=== PATIENT | female | born 2005 | race Caucasian/White ===

== ENCOUNTER 2024-10-15 14:24 | Emergency (ER) | payer OTHER, SELFPAY ==
[2024-10-15 14:38] VITALS: BP 129/86; PULSE 99; RESP 20; TEMP 36.4; O2SAT 100
[2024-10-15] MEDS: ONDANSETRON HCL ODT 4 MG TABLET SUBLINGUAL (14:42)
[2024-10-15 14:55] LABS: EDCOVIDSCREEN Negative (Negative); EDINFLUASCREEN Negative (Negative); EDINFLUBSCREEN Negative (Negative)
--- NOTE | 2024-10-15 14:59 | ED_ITS ---
HPI - Nausea/Vomiting/Diarrhea General Chief complaint: Nausea/Vomiting/Diarrhea Stated complaint: Vomiting Time Seen by Provider: 10/15/24 14:50 Source: patient Mode of arrival: ambulatory Limitations: no limitations History of Present Illness HPI Narrative: 19 year old female wo presents to [facility] care with roommate with complaints of nausea vomiting and diarrhea starting at 0700. Patient reports that she feels chilled and has some pain above her umbilicus denies any known fever, has headache and also body aches.s. Patient reports that she has not been able to keep any fluids down and she has had several watery diarrhea stools. Patient reports no blood or bilious vomiting has been food content initially now just watery and dry heaves. Patient reports no blood noted in stools which are watery loose stools. MD elicited complaint: nausea, vomiting, diarrhea and other (pain at area above umbilicus) Onset (ago): hour(s) (since 0700) Description of vomiting: food contents and watery Description of diarrhea: watery Associated nausea: Yes Associated abdominal pain: Yes Location of pain: other (above unbilicus) Severity: moderate Treatment prior to arrival: other (anti nausea med at home) Related Data Home Medications ?Medication ?Instructions ?Recorded ?Confirmed ?Last Taken ?Type methylphenidate HCl 20 mg 20 mg PO QPM 10/15/24 10/15/24 Unknown History tablet,extended release Allergies Allergy/AdvReac Type Severity Reaction Status Date / Time No Known Allergies Allergy Verified 10/15/24 14:33 Review of Systems Review of Systems: CONSTITUTIONAL: Denies fever, chills, or sweats. EYES: Denies visual changes, redness, or discharge. ENT: Denies rhinorrhea, congestion, sore throat, or otalgia. CARDIOVASCULAR: Denies chest pain, palpitations, or edema. RESPIRATORY: Denies cough or dyspnea. GASTROINTESTINAL: positive for abdominal pain above umbilicus, with nausea, vomiting, or diarrhea. GENITOURINARY: Denies dysuria or hematuria. SKIN: Denies rash or itching. MUSCULOSKELETAL: Denies back pain, joint pain, positive body aches NEUROLOGIC: Reports headache, numbness, or weakness. PSYCHIATRIC: Denies anxiety or depression. All systems reviewed & are unremarkable except as noted in HPI and below PMFSH Past Medical History Medical History (Updated 10/16/24 @ 13:25 by Cristela Garces NP) Hypertension ADHD (attention deficit hyperactivity disorder) Social History Social History (Updated 10/16/24 @ 13:25 by Cristela Garces NP) Smoking status: Current every day smoker Tobacco type: e-cigarettes/vaping Alcohol intake: current Alcohol use details: social Substance use type: does not use Living arrangements: with roommate(s) Occupation/Education: student Gender identity (if verbalized by the patient): Female Comments At time of signature, agree with nursing past medical, surgical, social and family history. There is no relevant family history pertinent to the presenting complaint Exam Narrative: GENERAL: Ill appearing, well-nourished, and in no some acute distress. HEAD: Normocephalic, atraumatic. EYES: PERRLA and EOMI. ENT: Nares clear, no rhinorrhea or epistaxis. Mucous membranes moist. NECK: Supple.no lymphadenopathy CHEST: Clear to auscultation. No respiratory distress. no cough noted SAO2 100% on room air HEART: Regular rate and rhythm. No murmur heard. Normal peripheral pulses. ABDOMEN: Soft,tender to mid abdomen region, No McBurney point tenderness, nondistended, normal active bowel sounds. nausea vomiting and diarrhea EXTREMITIES: Normal range of motion. No edema. SKIN: Warm, dry, no rash. NEURO: No focal deficits. Alert and oriented x3. Course Course Emergency Course: Patient is aware of diagnosis, understands and agrees to treatment plan.? Anti cipatory guidance given.? Patient agrees to follow-up as directed to seek care at the emergency department. Portions of this record may have been created with voice recognition software Level of Care: Express Care Visit Vital Signs Vital signs: Vital Signs Temperature 36.4 C L 10/15/24 14:38 Pulse Rate 99 10/15/24 14:38 Respiratory Rate 20 10/15/24 14:38 Blood Pressure 129/86 10/15/24 14:38 Pulse Oximetry 100 10/15/24 14:38 Temperature 36.4 C L 10/15/24 14:38 Pulse Rate 99 10/15/24 14:38 Respiratory Rate 20 10/15/24 14:38 Blood Pressure 129/86 10/15/24 14:38 Pulse Oximetry 100 10/15/24 14:38 Reviewed Transfer Transfered to: [facility] Transportation: Other (per private car with roommate) Transfer rationale: Nausea vomiting and diarrhea without response to Zofran doses X2,unable to keep any fluids down has had consistent N,V,D since 0700, dehydration. Accepting physician: Davon Transfer comments: Transfer to ED at [facility] per private car with room-mate MDM - Nausea/Vomiting/Diarrhea MDM Narrative Medical decision making narrative: [address] Mays at [facility] with condition update, testing results and PMH and VS reviewed, he agreed to accept patient for transfer. Differential Diagnosis Differential diagnosis: Likely gastroenteritis, dehydration and other (acute nausea and vomiting, diarrhea. ) Medical Records Attestation: I reviewed the patient's medical records. Lab Data Attestation: I reviewed the patient's lab results. Lab results narrative: Influenza A negative, Influenza B negative, COVID antigen negative Labs: Lab Results 10/15/24 Range/Units 14:53 POC Influenza A Ag Negative (Negative) POC Influenza B Ag Negative (Negative) POC SARS CoV-2 Ag Negative (Negative) reviewed Critical Care Time Critical Care Time Critical Care Time: No Discharge Plan Discharge Clinical Impression: Gastroenteritis Patient Disposition: Acute Care Hospital Condition: Stable Patient Language: Faroese Prescriptions: No Action methylphenidate HCl 20 mg tablet extended release 20 mg PO QPM Follow-up/Referrals: PHYSICIAN,GLUING MACHINE ADJUSTER [Primary Care Provider] - Time of Disposition: 16:41 Quality Deonte Coma Scale Eyes: Open Verbal: Oriented and Alert Motor: Follows Commands Deonte Coma Total Score: 15
[2024-10-15] MEDS: ONDANSETRON HCL ODT 4 MG TABLET PO (15:31)
== END 2024-10-15 16:42 | disposition short-term general hospital (02) ==
PROVIDERS: Emergency Provider Registered Nurse
DX: K21.9 Gastro-esophageal reflux disease without esophagitis (principal); Z20.822 Contact with and (suspected) exposure to COVID-19; F17.290 Nicotine dependence, other tobacco product, uncomplicated; I10 Essential (primary) hypertension; F90.9 Attention-deficit hyperactivity disorder, unspecified type
CPT/HCPCS: 87426; 87804; 99213; A9270; G0463

== ENCOUNTER 2024-10-15 17:02 | Emergency (ER) | payer OTHER, SELFPAY ==
--- OUTSIDE RECORDS SUMMARY | 2024-10-15 17:05 | XMS_ITS | Clinical Summary ---
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 Active Last Documented On 9 1:29PM ; [employer] Anxiety Disorder Nos 01/02/2019 GIANA PATEL M.D. Active Last Documented On 9 10:26AM ; [employer] Depression 01/02/2019 GIANA PATEL M.D. Acti ve Last Documented On 9 10:26AM ; [facility] Plan of Treatment No Plan of Treatment Recorded Assessments Includes: Assessments from this encounter No Assessments Recorded Medical Equipment - Implanted Devices Includes: Current Devices No Medical Equipment Recorded Medications Includes: Medications discussed during this encounter and other current Medications Current Medications (continue as prescribed) Methylphenidate HCl ER 10 MG Oral Tablet Extended Release 10/24/2023 Provider: GIANA CHRIS M.D. Diagnosis: Attn-defct hyper activity disorder, predom inattentive type One tablet daily Last Documented On 10/24/2023 2:28PM By MARIO PATEL MD ; [facility] Carvedilol 12.5 MG Oral Tablet 09/08/2023 Provider: GIANA PATEL M.D. Diagnosis: Essential (prima ry) hypertension One tablet twice a day Last Documented On 09/08/2023 2:57PM By MARIO PATEL MD ; [facility] Medications Administered Includes: Administered Medications from this encounter No Administered Medications Recorded Results Includes: Results discussed during this encounter No Results Recorded For Specified Dates History of Present Illness Includes: History of Present Illness from this encounter No History of Present Illness Recorded Social History No Social History Recorded - Smoking Status Unknown Medical History Includes: Medical History addressed during this encounter No Medical History Recorded Family History Includes: Family History addressed during this encounter No Family History Recorded Review of Systems Includes: Review of Systems from this encounter No Review of Systems Recorded Mental Status Includes: Mental Status from this encounter No Mental Status Recorded Functional Status Includes: Functional Status from this encounter No Functional Status Recorded Physical Exam Includes: Physical Exam from this encounter No Physical Exam Recorded Allergies Includes: Active Allergies No Known Allergies Insurance Includes: Active Insurance Policies Plan Name Member ID Group # Subscriber Relationship Effect brenton Dates 1 - [facility] [id number] ANGELICA PARTIDA Child Clinical Notes Includes: Clinical Notes from this encounter No Clinical Notes Recorded
--- OUTSIDE RECORDS SUMMARY | 2024-10-15 17:05 | XMS_ITS | Clinical Summary ---
Author Organization [facility] Address [address] [place] [address] Phone Care Team Providers Care Solution Specialist Name Role Phone Gerard Martines MD Primary Care Provider Allergies No known active allergies Medications ibuprofen (MOTRIN) 800 MG Tablet Take 1 Tablet by mouth every 8 hours as needed for Moderate or more severe pain. 06/30/2024 Active Family History Medical History Relation Name Comments No Known Problems Father No Known Problems Mother Relation Name Status Comments Father Alive Mother Alive Social History Tobacco Use Types Packs/Day Years Used Date Smoking Tobacco: Never Smokeless Tobacco: Never Alcohol Use Standard Drinks/Week Comments Never 0 (1 standard drink = 0.6 oz pur e alcohol) AUDIT-C Answer Date Recorded Frequency of Alcohol Consumption Never 01/23/2019 Average Number of Drinks Not on file 019 Frequency of Binge Drinking Not on file 01/04 Comments No Sex and Gender Information Value Date Recorded Sex Assigned at Not on file Legal Sex Female 10:24 PM CDT Gender Identity Not on file Sexual Orientation Not on file Last Filed Vital Signs Vital Sign Reading Time Taken Comments Blood Pressure 127/73 06/30/2024 2:30 PM CDT Pulse 80 06/30/2024 2:30 PM CDT Temperature 37.3 C (99.1 F) 06/30/2024 12:41 PM CDT Respiratory Rate 17 06/30/2024 12:41 PM CDT Oxygen Saturation 97% 06/30/2024 2:30 PM CDT Inhaled Oxygen Concentration - - Weight 72.6 kg (160 lb) 06/30/2024 12:41 PM CDT Height 175.3 cm (5' 9 ) 06/30/2024 12:41 PM CDT Body Mass Index 23.63 06/30/2024 12:41 PM CDT Plan of Treatment Health Maintenance Due Date Last Done Comments Hepatitis C Virus (HCV) Screening 2003 TdaP Immunization 2003 Human Papillomavirus (HPV) Immunization (1 - 3-dose series) 2018 Meningococcal B Immunization (1 of 2 - Standard) 2019 Pap Smear 2024 Influenza Immunization (#1) 2024 SARS-COV-2 Immunization ( season) 2024 Respiratory Syncytial Virus (RSV) Immunization (Adult) (1 - 1-dose 75+ series) 2078 Hepatitis B Immunization Completed 004, 2003, 2003, Additional history exists Pneumococcal Immunization Combined Aged Out 06/17/2004, 2003, 2003, Additional history exists No longer eligible based on patient's age to complete this topic Hepatitis A Immunization Discontinued 05/10/2006, 03/05 Measles Mumps Rubella (MMR) Immunization Discontinued 01/30/2008, 04/03/2007, 03/16/2004 Polio (IPV) Immunization Discontinued 008, 2003, 2003, Additional history exists Varicella Immunization Discontinued 8, 04/03/2007, 03/16/2004 Meningococcal Immunization (ACWY) Completed 04/22/2020 DTaP/Tdap/Td Immunization Discontinued 2023, 01/30/2008, 06/17/2004, Additional history exists Rotavirus Immunization Aged Out No lo nger eligible based on patient's age to complete this topic Medical Devices Implanted Type Area E Commerce Director Device Identifier Shelf Expiration Date Model / Serial / Lot Evergreen Sut 2.9mm Short Pushlock Kun Eyelet Hndl Certified Nursing Attendant Biocomposite 12.5mm Strl Disp - [id number] Implanted:Qty: 1 on 01/31/2020 by Олег Clark MD at [facility] IMPLANT Right: Shoulder [employer] 03/04/2021 [id number]-[id number] / [id number] / [id number] Evergreen Sut 2.9mm Short Pushlock Kun Eyelet Hndl Certified Nursing Attendant Biocomposite 12.5mm Strl Disp - [id number] Implanted:Qty: 1 on 01/31/2020 by Олег Clark MD at [facility] IMPLANT Right: Shoulder [employer] 04/04/2020 [id number]-[id number] / [id number] / [id number] Insurance [facility]ADA TPL Care Teams Solution Specialist Relationship Specialty Start Date End Date Gerard Martines MD [address] [place] [id number] PCP - General Family Medicine 01/28/20
--- OUTSIDE RECORDS SUMMARY | 2024-10-15 17:05 | XMS_ITS | Clinical Summary ---
Author Organization [facility] Address [address] [place] [address] Care Team Providers Care Rocket Engine Tester Name Role Phone Unavailable Primary Care Provider Unavailabl e Allergies No known active allergies Medications citalopram (CeleXA) 20 mg tablet Citalopram Hydrobromide 20 MG Oral Tablet QTY: 30 tablet Days: 30 Refills: 0 Written: 06/06/23 Patient Instructions: One tablet daily 06/06/20 Active methylphenidat e HCl (METHYLIN ER) 10 mg Extended Release tablet Methylphenidate HCl ER 10 MG Oral Tablet Extended Release QTY: 15 tablet Days: 15 Refills: 0 Written: 06/06/23 Patient Instructions: One tablet daily 06/06/20 Active dextromethorph an-guaiFENesin (MUCINEX DM) 30-600 mg Tablet Sustained Release 12HRIndication s:COVID-19 virus detected Take 1 Tablet by mouth every 12 hours. 06/28/20 Active ibuprofen (MOTRIN) 200 mg tabletIndicati ons:COVID-19 virus detected Take 3 Tablets (600 mg) by mouth every 6 hours as needed for Pain, Mild. 06/28/20 Active fluticasone propionate (FLONASE) 50 mcg/spray [place], Suspension nasal inhalerIndicat ions:COVID-19 virus detected Administer 2 Sprays in each nostril daily. 16 Gram 06/28/20 Active Active Problems Problem Noted Date Diagnosed Date Attention deficit hyperactiv ity disorder (ADHD), predominantly inattentive type 01/16/2019 Anxiety disorder 01/02/2019 Depression 01/02/2019 Closed fracture of radius 11/22/2016 Encounters Date Type Department Care Team Description 09/27/2024 External Device Data [facility] ABSTRACTION Provider, Abstract from Last 3 Months Social History Tobacco Use Types Packs/Day Years Used Date Smoking Tobacco: Never Smokeless Tobacco: Never Tobacco Cessation:Counseling Given: No Alcohol Use Standard Drinks/Week Comments Not Currently 0 (1 standard drink = 0.6 oz pur e alcohol) Comments No Sex and Gender Information Value Date Recorded Sex Assigned at Not on file Legal Sex Female 10:19 AM CDT Gender Identity Not on file Sexual Orientation Not on file Last Filed Vital Signs Vital Sign Reading Time Taken Comments Blood Pressure 118/78 06/28/2023 10:36 AM CDT Pulse 100 06/28/2023 10:36 AM CDT Temperature 37.2 C (99 F) 06/28/2023 10:36 AM CDT Respiratory Rate 12 06/28/2023 10:36 AM CDT Oxygen Saturation 99% 06/28/2023 10:36 AM CDT Inhaled Oxygen Concentration - - Weight - - Height - - Body Mass Index - - Plan of Treatment Health Maintenance Due Date Last Done Comments CHLAMYDIA SCREENING (ANNUAL) 11-24 YEARS 2014 DTAP/TDAP/TD VACCINES (6 - Tdap) 2014 01/30/2008, 06/17/2004, 2003, Additional history exists HPV VACCINES (1 - 3-dose series) 2018 CERVICAL CANCER SCREENING 2024 INFLUENZA VACCINE (#1) 2024 HEPATITIS B VACCINES Completed 2003, 2003, 2003, Additional history exists PNEUMOCOCCAL VACCINE 0-64 YEARS Aged Out 06/17/2004, 2003, 2003, Additional history exists No longer eligible based on patient's age to complete this topic
--- OUTSIDE RECORDS SUMMARY | 2024-10-15 17:05 | XMS_ITS | Referral Summary ---
Author Organization [facility] Address [address] [place] [address] Care Team Providers Care Plant Floor Automation Manager Name Role Phone Phani Choe MD Primary Care Provider [phone] Phani Choe MD Unavailable [phone] Source Comments [facility],non-owned Affiliates and Associated Physician Practices is amultiple site organization consisting of ambulatory clinics and hospital sitesin [place], [place], [place] and [place]. This disclosure is being madepursuant to the Care Everywhere program and may not contain all information available regarding this patient. Last updated 18.[facility] Allergies No known active allergies Medications * Be aware that medications may not be up to date on this document. Alwaysverify current medications with the patient. Medication Sig Dispensed Refills Start Date End Date Status amphetamine-dextroamphetamine (ADDERALL) 30 MG tablet A ctive Active Problems Problem Noted Date Diagnosed Date Closed fracture of radius 11/22/2016 Social History Tobacco Use Types Packs/Day Years Used Date Smoking Tobacco: Never Assessed Sex and Gender Information Value Date Recorded Sex Assigned at Not on file Gender Identity Not on file Sexual Orientation Not on file Last Filed Vital Signs Vital Sign Reading Time Taken Comments Blood Pressure - - Pulse - - Temperature - - Respiratory Rate - - Oxygen Saturation - - Inhaled Oxygen Concentration - - Weight 60.3 kg (133 lb) 11/22/2016 9:30 AM CDT Height 162.6 cm (5' 4 ) 11/22/2016 9:30 AM CDT Body Mass Index 22.83 11/22/2016 9:30 AM CDT Plan of Treatment Not on file Care Teams Plant Floor Automation Manager Relationship Specialty Start Date End Date Phani Choe MD [address] [place] [address] PCP - General 02/11/20 Phani Choe MD [address] [place] [address] Pediatrics 02/11/20
--- OUTSIDE RECORDS SUMMARY | 2024-10-15 17:05 | XMS_ITS | Clinical Summary ---
Author Organization [facility] Address [address] [place] [address] Care Team Providers Care Master Certified Rv Technician Name Role Phone Phani Choe MD Primary Care Provider [phone] Phani Choe MD Unavailable [phone] [facility] [employer],non-owned Affiliates and Associated Physician Practices is amultiple site organization consisting of ambulatory clinics and hospital sitesin [place], [place], [place] and [place]. This disclosure is being madepursuant to the Care Everywhere program and may not contain all information available regarding this patient. Last updated 18.[facility] [employer] Allergies No known active allergies Medications * [...] 11/22/2016 9:30 AM CDT Plan of Treatment Health Maintenance Due Date Last Done Comments PAP SMEAR 2003 HIV SCREENING 2018 HPV VACCINE (1 - 3-dose series) 2018 CHLAMYDIA/GONORRHEA SCREENING 2019 MENINGOCOCCAL (Group B) VACC INE (1 of 2 - Standard) 2019 HEPATITIS C SCREENING 03/08/2021 DTAP/TDAP/TD VACCINES (1 - Tdap) 2022 HEPATITIS B VACCINE (1 of 3 - 19+ 3-dose series) 2022 COVID-19 VACCINE (1 - 2023-2 5 season) 2024 INFLUENZA VACCINE (#1) 2024 DEPRESSION SCREENING 09/05/2024 ZOSTER VACCINE (1 of 2) 2053 HIB VACCINE Aged Out No longer eligi ble based on patient's age to complete this topic MENINGOCOCCAL VACCINE Aged Out No valerie nicola eligible based on patient's age to complete this topic PNEUMOCOCCAL VACCINE Aged Out No long er eligible based on patient's age to complete this topic Care Teams Master Certified Rv Technician Relationship Specialty Start Date End Date Phani Choe MD [address] [place] [address] PCP - General 02/11/20 Phani Choe MD [address] [place] [address] Pediatrics 02/11/20
--- OUTSIDE RECORDS SUMMARY | 2024-10-15 17:05 | XMS_ITS ---
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 Active Last Documented On 9 1:29PM ; [facility] Anxiety Disorder Nos 01/02/2019 GIANA PATEL M.D. Active Last Documented On 9 10:26AM ; [facility] Depression 01/02/2019 GIANA PATEL M.D. Acti ve Last Documented On 9 10:26AM ; [facility] Plan of Treatment Findings Encounter Date Continue current medication CHECK UP with VERN PATEL M.D. 09/22/2023 Last Documented On 4 3:25PM ; [facility] Monitor Blood Pressure at home CHECK UP with MARIO PATEL M.D. 09/22/2023 Last Documented On 4 3:25PM ; [facility] Ordered patient to call if p giles develops CHECK UP with GIANA PATEL M.D. 09/22/2023 Last Documented On 4 3:25PM ; [facility] Ordered return to the clinic if condition worsens or new symptoms arise CHECK UP with GIANA PATEL M.D. 09/22/2023 Last Documented On 4 3:25PM ; [facility] Continue current medication PROBLEM VISIT with Brooklynn PATEL M.D. 09/08/2023 Last Documented On 4 2:44PM ; [facility] Monitor Blood Pressure at home PROBLEM VISIT wit h GIANA PATEL M.D. 09/08/2023 Last Documented On 4 2:44PM ; [facility] Ordered patient to call if p rajlem develops PROBLEM VISIT with GIANA PATEL M.D. 09/08/2023 Last Documented On 4 2:44PM ; [facility] Ordered return to the clinic if condition worsens or new symptoms arise PROBLEM VISIT with GIANA PATEL M.D. 09/08/2023 Last Documented On 4 2:44PM ; [facility] Plan - start medication PROBLEM VISIT with LUANN PATEL M.D. 09/08/2023 Last Documented On 4 2:44PM ; [facility] Ordered Clinical summary pro vided to patient WELL WOMAN - ESTABLISHED PT with CELIA COVINGTON RN [facility] 08/03/2023 Last Documented On 3 10:53AM ; [facility] Ordered patient to call if p rajlem develops CHECK UP with GIANA PATEL M.D. 06/06/2023 Last Documented On 3 4:47PM ; [facility] Ordered return to the clinic if condition worsens or new symptoms arise CHECK UP with GIANA PATEL M.D. 06/06/2023 Last Documented On 3 4:47PM ; [facility] Plan - start medication CHECK UP with GIANA PATEL M.D. 06/06/2023 Last Documented On 3 4:47PM ; [facility] Ordered Clinical summary pro vided to patient WELL WOMAN - ESTABLISHED PT with CELIA COVINGTON RN [facility] 08/02/2022 Last Documented On 2 10:25AM ; [facility] Ordered Clinical summary pro vided to patient WELL WOMAN - ESTABLISHED PT with CELIA COVINGTON RN [facility] 07/28/2021 Last Documented On 1 8:44AM ; [facility] Ordered patient will call fo r appointment as needed SICK VISIT with JUSTICE SMALLS [facility] 09/23/2020 Last Documented On 1 10:31AM ; [facility] Ordered return to the clinic if condition worsens or new symptoms arise SICK VISIT with JUSTICE SMALLS [facility] 09/23/2020 Last Documented On 1 10:31AM ; [facility] Ordered Clinical summary pro vided to patient ANNUAL WELL WOMEN EXAM with CELIA COVINGTON RN [facility] 07/17/2020 Last Documented On 0 2:26PM ; [facility] Continue current medication 1 MONTH CHECK with Brooklynn PATEL M.D. 05/29/2020 Last Documented On 0 4:14PM ; [facility] Ordered patient to call if p roblem develops 1 MONTH CHECK with GIANA PATEL M.D. 05/29/2020 Last Documented On 0 4:14PM ; [facility] Ordered return to the clinic if condition worsens or new symptoms arise 1 MONTH CHECK with GIANA PATEL M.D. 05/29/2020 Last Documented On 0 4:14PM ; [facility] Ordered patient will call fo r appointment as needed SICK VISIT with JUSTICE SMALLS [facility] 05/15/2020 Last Documented On 0 7:47PM ; [facility] Ordered return to the clinic if condition worsens or new symptoms arise SICK VISIT with JUSTICE SMALLS [facility] 05/15/2020 Last Documented On 0 7:47PM ; [facility] Ordered patient to call if p roblem develops GENERAL OFFICE VISIT with GIANA PATEL M.D. 04/22/2020 Last Documented On 0 9:40AM ; [facility] Ordered return to the clinic if condition worsens or new symptoms arise GENERAL OFFICE VISIT with GIANA PATEL M.D. 04/22/2020 Last Documented On 0 9:40AM ; [facility] Plan - start medication GENERAL OFFICE VISIT wit donaldo GIANA PATEL M.D. 04/22/2020 Last Documented On 0 9:40AM ; [facility] Acetaminophen alternating wi th Motrin Patient may take alternating Tylenol or Ibuprofen every 4 to 6 hours as needed for fever and pain MED CHECK with GIANA PATEL M.D. 10/16/2019 Last Documented On 0 5:22PM ; [facility] Ordered patient to call if yasmani dotym develops MED CHECK with GIANA PATEL M.D. 10/16/2019 Last Documented On 0 5:22PM ; [facility] Ordered return to the clinic if condition worsens or new symptoms arise MED CHECK with GIANA PATEL M.D. 10/16/2019 Last Documented On 0 5:22PM ; [facility] Plan - start medication MED CHECK with GIANA PATEL M.D. 10/16/2019 Last Documented On 0 5:22PM ; [facility] Supportive care was advised. Symptomatic therapy for symptoms. Can use over the counter cough or cold medicine and tylenol as needed MED CHECK with GIANA PATEL M.D. 10/16/2019 Last Documented On 0 5:22PM ; [facility] Ordered patient to call if p rajlem develops 3 MONTH CHECK with GIANA PATEL M.D. 06/12/2019 Last Documented On 9 4:55PM ; [facility] Ordered return to the clinic if condition worsens or new symptoms arise 3 MONTH CHECK with GIANA PATEL M.D. 06/12/2019 Last Documented On 9 4:55PM ; [facility] Plan - start medication 3 MONTH CHECK with LUANN PATEL M.D. 06/12/2019 Last Documented On 9 4:55PM ; [facility] Continue current medication citalopram at 40 mg a day 1 MONTH CHECK with GIANA PATEL M.D. 03/15/2019 Last Documented On 9 11:38AM ; [facility] Modify drug dosage adderall XR to 30 mg a day 1 MONTH CHECK with GIANA PATEL M.D. 03/15/2019 Last Documented On 9 11:38AM ; [facility] Ordered patient to call if p roblem develops 1 MONTH CHECK with GIANA PATEL M.D. 03/15/2019 Last Documented On 9 11:38AM ; [facility] Ordered return to the clinic if condition worsens or new symptoms arise 1 MONTH CHECK with GIANA PATEL M.D. 03/15/2019 Last Documented On 9 11:38AM ; [facility] Plan - start medication well butrin at 100 mg 2 x a day 1 MONTH CHECK with GIANA PATEL M.D. 03/15/2019 Last Documented On 9 11:38AM ; [facility] Ordered Clinical summary pro vided to patient NEW TOUR CONDUCTOR EXAM with CELIA COVINGTON RN [facility] 02/19/2019 Last Documented On 9 1:55PM ; [facility] Continue current medication 2 WK CK-UP with SREE PATEL M.D. 01/16/2019 Last Documented On 9 1:31PM ; [facility] Modify drug dosage adderall to XR 20 mg in am 2 WK CK-UP with GIANA PATEL M.D. 01/16/2019 Last Documented On 9 1:31PM ; [facility] Ordered patient to call if p roblem develops 2 WK CK-UP with GIANA PATEL M.D. 01/16/2019 Last Documented On 9 1:31PM ; [facility] Ordered return to the clinic if condition worsens or new symptoms arise 2 WK CK-UP with GIANA PATEL M.D. 01/16/2019 Last Documented On 9 1:31PM ; [facility] Modify drug dosage Citalopram to 40 mg 2 WK CK-UP with GIANA Torres.Anabelle 01/02/2019 Last Documented On 9 10:30AM ; [facility] Ordered patient to call if p roblem develops 2 WK CK-UP with GIANA Andrew PATEL M.D. 01/02/2019 Last Documented On 9 10:30AM ; [facility] Ordered return to the clinic if condition worsens or new symptoms arise 2 WK CK-UP with GIANA Torres.Anabelle 01/02/2019 Last Documented On 9 10:30AM ; [facility] Plan - start medication adderall 2 WK CK-UP with GIANA Torres.Anabelle 01/02/2019 Last Documented On 9 10:30AM ; [facility] Ordered patient to call if p roblem develops NEW PATIENT VISIT with GIANA Torres.Anabelle 12/19/2018 Last Documented On 9 4:25PM ; [facility] Ordered return to the clinic if condition worsens or new symptoms arise NEW PATIENT VISIT with GIANA PATEL M.Anabelle 12/19/2018 Last Documented On 9 4:25PM ; [facility] Plan - start medication NEW PATIENT VISIT with Brooklynn Torres.Anabelle 12/19/2018 Last Documented On 9 4:25PM ; [facility] Ordered return to the clinic if condition worsens or new symptoms arise WALK-IN CLINIC SICK VISIT with ANNY GILLESPIE-Arleen 05/13/2018 Last Documented On 8 1:20PM ; [facility] Ordered Transition in care, clinical summary provided WALK-IN CLINIC SICK VISIT with ANNY GILLESPIE-Arleen 05/13/2018 Last Documented On 8 1:20PM ; [facility] Ordered referred to primary care physician WALK-IN CLINIC SICK VISIT with JUSTICE [facility] 04/11/2018 Last Documented On 8 3:05PM ; [facility] Ordered Transition in care, clinical summary provided WALK-IN CLINIC SICK VISIT with JUSTICE [facility] 04/11/2018 Last Documented On 8 3:05PM ; [facility] Pt to use prescription as or dered. Purpose of and use of medication discussed. 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 Ok to see Ortho/Dr Clark per LSD. Last Documented On 1 7:04PM ; [facility] [employer] [facility] [address] [id number] - Essential (primary) hypertension Note: Reading Dx Palpitation s Last Documented On 4 9:27AM ; [facility] Instructions to patient Instructions for patient : B reast Self Exam discussed and technique reviewed Last Documented On 3 10:39AM ; [facility] Use a condom during sexual i ntercourse Last Documented On 3 10:39AM ; [facility] Instructed to call if excess brenton bleeding or abdominal/pelvic pain Last Documented On 3 10:39AM ; [facility] Recommend diet and exercise at least 30 min three times per week Last Documented On 3 10:39AM ; [facility] Instructions for patient : B reast Self Exam discussed and technique reviewed Last Documented On 2 9:57AM ; [facility] Use a condom during sexual i ntercourse Last Documented On 2 9:57AM ; [facility] Instructed to call if excess brenton bleeding or abdominal/pelvic pain Last Documented On 2 9:57AM ; [facility] Recommend diet and exercise at least 30 min three times per week Last Documented On 2 9:57AM ; [facility] Instructions for patient : B reast Self Exam discussed and technique reviewed Last Documented On 1 8:40AM ; [facility] Use a condom during sexual i ntercourse Last Documented On 1 8:40AM ; [facility] Instructed to call if excess brenton bleeding or abdominal/pelvic pain Last Documented On 1 8:40AM ; [facility] Recommend diet and exercise at least 30 min three times per week Last Documented On 1 8:40AM ; [facility] Instructions for patient Last Documented On 1 10:21AM ; [facility] Instructions for patient : B reast Self Exam discussed and technique reviewed Last Documented On 0 1:05PM ; [facility] Instructed to call if excess brenton bleeding or abdominal/pelvic pain Last Documented On 0 1:05PM ; [facility] Recommend diet and exercise at least 30 min three times per week Last Documented On 0 1:05PM ; [facility] Instructions for patient Last Documented On 0 7:44PM ; [facility] Instructions for patient : B reast Self Exam discussed and technique reviewed Last Documented On 9 1:18PM ; [facility] Instructed to call if excess brenton bleeding or abdominal/pelvic pain Last Documented On 9 1:18PM ; [facility] Recommend diet and exercise at least 30 min three times per week Last Documented On 9 1:18PM ; [facility] Go to the emergency room if condition worsens Last Documented On 8 1:19PM ; [facility] Maintain a healthy diet Last Documented On 8 3:04PM ; [facility] No Special Instructions or D evices Last Documented On 8 3:04PM ; [facility] Education and Decision Aids were provided during visit for: Patient education RE: abbey g signals associated with hormonal contraceptive use including abdominal, chest, or leg pain, headaches or visual disturbances Last Documented On 3 10:39AM ; [facility] Patient Education: Daily alexis cium and vitamin D Last Documented On 3 10:39AM ; [facility] Patient education : Last Documented On 3 8:36AM ; [facility] Inquiry and counseling about contraceptive practices Last Documented On 3 8:33AM ; [facility] Patient education RE: kiannan g signals associated with hormonal contraceptive use including abdominal, chest, or leg pain, headaches or visual disturbances Last Documented On 2 9:57AM ; [facility] Patient Education: Daily alexis cium and vitamin D Last Documented On 2 9:57AM ; [facility] Patient education RE: kiannan g signals associated with hormonal contraceptive use including abdominal, chest, or leg pain, headaches or visual disturbances Last Documented On 1 8:40AM ; [facility] Patient Education: Daily alexis cium and vitamin D Last Documented On 1 8:40AM ; [facility] Discussed smoking and drug u se Last Documented On 0 1:05PM ; [facility] Discussed risk-taking behavi or Last Documented On 0 1:05PM ; [facility] Patient education RE: kiannan g signals associated with hormonal contraceptive use including abdominal, chest, or leg pain, headaches or visual disturbances Last Documented On 0 1:05PM ; [facility] Patient Education: Daily alexis cium and vitamin D Last Documented On 0 1:05PM ; [facility] Patient counseling : Use of contraceptives discussed in detail including rare occurrence of heart attack, stroke, and leg clots. Patient understands that smoking increases the risk of serious side effects with any steroid-based contraceptive method Last Documented On 9 9:27AM ; [facility] control consent review ed and signed Last Documented On 9 9:29AM ; [facility] Discussed smoking and drug u se Last Documented On 9 1:18PM ; [facility] Patient education RE: kiannan g signals associated with hormonal contraceptive use including abdominal, chest, or leg pain, headaches or visual disturbances Last Documented On 9 1:18PM ; [facility] Patient Education: Daily alexis cium and vitamin D Last Documented On 9 1:18PM ; [facility] control consent review ed and signed Last Documented On 9 1:18PM ; [facility] Patient education about anti biotics: need to finish even if feeling better Last Documented On 8 1:19PM ; [facility] Discussed use of seat belts Last Documented On 8 3:04PM ; [facility] Discussed bicycle safety Last Documented On 8 3:04PM ; [facility] Discussed sports safety Last Documented On 8 3:04PM ; [facility] Discussed concerns about tel evision : limit time spent watching Last Documented On 8 3:04PM ; [facility] Assessments Includes: Assessments for all patient encounters Findings Encounter Date Anxiety disorder NOS CHECK UP with GIANA SORIA ON M.D. 09/22/2023 Last Documented On 4 3:25PM ; [facility] Attention deficit disorder w ithout hyperactivity, predominantly inattentive type CHECK UP with GIANA PATEL M.DDru 09/22/2023 Last Documented On 4 3:25PM ; [facility] Depression CHECK UP with GIANA PATEL M. DDru 09/22/2023 Last Documented On 4 3:25PM ; [facility] Essential hypertension CHECK UP with GIANA CHRIS MRaul 09/22/2023 Last Documented On 4 3:25PM ; [facility] Anxiety disorder NOS PROBLEM VISIT with GIANA PATEL M.DDru 09/08/2023 Last Documented On 4 2:44PM ; [facility] Attention deficit disorder w ithout hyperactivity, predominantly inattentive type PROBLEM VISIT with GIANA PATEL M.DDru 09/08/2023 Last Documented On 4 2:44PM ; [facility] Depression PROBLEM VISIT with GIANA SORIA ON M.D. 09/08/2023 Last Documented On 4 2:44PM ; [facility] Essential hypertension PROBLEM VISIT with VERN PATEL MDruDDru 09/08/2023 Last Documented On 4 2:44PM ; [facility] NORMAL FEMALE EXAM WELL WOMAN - ESTABLI SHED PT with CELIA COVINGTON RN [facility] 08/03/2023 Last Documented On 3 10:53AM ; [facility] Anxiety disorder NOS CHECK UP with GIANA S DIZ ON M.D. 06/06/2023 Last Documented On 3 4:47PM ; [facility] Attention deficit disorder w ithout hyperactivity, predominantly inattentive type CHECK UP with GIANA S AMANDA M.D. 06/06/2023 Last Documented On 3 4:47PM ; [facility] Depression CHECK UP with GIANA S AMANDA M. D. 06/06/2023 Last Documented On 3 4:47PM ; [facility] Patient is approved for part icipation in School, Physical Education, and Sports for 1 year CHECK UP with GIANA S AMANDA M.D. 04/21/2023 Last Documented On 3 3:03PM ; [facility] Anxiety disorder NOS CHECK UP with GIANA S NICOLEZ ON M.D. 04/21/2023 Last Documented On 3 3:03PM ; [facility] Attention deficit disorder w ithout hyperactivity, predominantly inattentive type CHECK UP with GIANA S AMANDA M.D. 04/21/2023 Last Documented On 3 3:03PM ; [facility] Depression CHECK UP with GIANA S AMANDA M. D. 04/21/2023 Last Documented On 3 3:03PM ; [facility] Routine history and physical CHECK UP with LEONC IO S AMANDA M.Anabelle 04/21/2023 Last Documented On 3 3:03PM ; [facility] Contraceptive management WH CONSULTATION - ESTABLISHED PATIENT with CELIA COVINGTON RN [facility] 11/10/2022 Last Documented On 3 8:39AM ; [facility] NORMAL FEMALE EXAM WELL WOMAN - ESTABLI SHED PT with CELIA COVINGTON RN [facility] 08/02/2022 Last Documented On 2 10:25AM ; [facility] Contraceptive management INJECTION with CELIA COVINGTON RN [facility] 10/15/2021 Last Documented On 2 3:52PM ; [facility] NORMAL FEMALE EXAM WELL WOMAN - ESTABLI SHED PT with CELIA COVINGTON RN [facility] 07/28/2021 Last Documented On 1 8:44AM ; [facility] Patient is approved for participation in School, Physical Education, and Sports for 1 year EMERGENCY ROOM FOLLOWUP-ESTABLISHED PT with GIANA S AMANDA M.D. 12/08/2020 Last Documented On 1 1:36PM ; [facility] Routine adolescent history a nd physical (12 - 17 yrs) EMERGENCY ROOM FOLLOWUP-ESTABLISHED PT with GIANA S AMANDA M.D. 12/08/2020 Last Documented On 1 1:36PM ; [facility] Acute upper respiratory infection SICK VISIT wit donaldo [facility] 09/23/2020 Last Documented On 1 10:31AM ; [facility] NORMAL FEMALE EXAM ANNUAL WELL WOMEN EXAM with Arleen COVINGTON RN [facility] 07/17/2020 Last Documented On 0 2:26PM ; [facility] Anxiety disorder NOS 1 MONTH CHECK with GIANA S AMANDA M.D. 05/29/2020 Last Documented On 0 4:14PM ; [facility] Attention deficit disorder w [facility] hyperactivity, predominantly inattentive type 1 MONTH CHECK with GIANA S AMANDA M.D. 05/29/2020 Last Documented On 0 4:14PM ; [facility] Depression 1 MONTH CHECK with GIANA S NICOLEZ ON M.D. 05/29/2020 Last Documented On 0 4:14PM ; [facility] Acute pharyngitis SICK VISIT with ANDREA PEARL [employer] 05/21/2020 Last Documented On 0 12:24PM ; [facility] Aphthous ulcer SICK VISIT with ANDREA AUSTIN [employer] PROC[employer]OR-[employer] 05/21/2020 Last Documented On 0 12:24PM ; [facility] Acute upper respiratory infection SICK VISIT wit donaldo [facility] 05/15/2020 Last Documented On 0 7:47PM ; [facility] Anxiety disorder NOS GENERAL OFFICE VISIT with Brooklynn PATEL M.D. 04/22/2020 Last Documented On 0 9:40AM ; [facility] Attention deficit disorder w ithout hyperactivity, predominantly inattentive type GENERAL OFFICE VISIT with GIANA S AMANDA M.D. 04/22/2020 Last Documented On 0 9:40AM ; [facility] Depression GENERAL OFFICE VISIT with LEONCI O S AMANDA M.D. 04/22/2020 Last Documented On 0 9:40AM ; [facility] Routine adolescent history a nd physical (12-17 yrs) with abnormal findings GENERAL OFFICE VISIT with GIANA S AMANDA M.D. 04/22/2020 Last Documented On 0 9:40AM ; [facility] Anxiety disorder NOS MED CHECK with GIANA S DI ZON M.D. 10/16/2019 Last Documented On 0 5:22PM ; [facility] Attention deficit disorder w ithout hyperactivity, predominantly inattentive type MED CHECK with GIANA S AMANDA M.D. 10/16/2019 Last Documented On 0 5:22PM ; [facility] Depression MED CHECK with GIANA S AMANDA M .D. 10/16/2019 Last Documented On 0 5:22PM ; [facility] [facility] Right deltoid muscle strain MED CHECK with LEONC IO S AMANDA M.D. 10/16/2019 Last Documented On 0 5:22PM ; [facility] Upper respiratory infection MED CHECK with LEONC IO S AMANDA M.D. 10/16/2019 Last Documented On 0 5:22PM ; [facility] Vasovagal syncope DEPO INJECTION with CELIA GOMEZ RN [facility] 07/30/2019 Last Documented On 9 10:24AM ; [facility] Encounter for contraceptive surveillance, unspecified CONSULTATION with CELIA COVINGTON RN [facility] 07/23/2019 Last Documented On 9 9:33AM ; [facility] Anxiety disorder NOS 3 MONTH CHECK with GIANA S AMANDA M.D. 06/12/2019 Last Documented On 9 4:55PM ; [facility] Attention deficit disorder w ithout hyperactivity, predominantly inattentive type 3 MONTH CHECK with GIANA S AMANDA M.D. 06/12/2019 Last Documented On 9 4:55PM ; [facility] Depression 3 MONTH CHECK with GIANA S DIZ ON M.D. 06/12/2019 Last Documented On 9 4:55PM ; [facility] Anxiety disorder NOS 1 MONTH CHECK with GIANA S AMANDA M.D. 03/15/2019 Last Documented On 9 11:38AM ; [facility] Attention deficit disorder w ithout hyperactivity, predominantly inattentive type 1 MONTH CHECK with GIANA S AMANDA M.D. 03/15/2019 Last Documented On 9 11:38AM ; [facility] Depression 1 MONTH CHECK with GIANA S DIZ ON M.D. 03/15/2019 Last Documented On 9 11:38AM ; [facility] NORMAL FEMALE EXAM NEW TOUR CONDUCTOR EXAM with CELIA CASTILLO RN [facility] 02/19/2019 Last Documented On 9 1:55PM ; [facility] Anxiety disorder NOS 2 WK CK-UP with GIANA S D IZON M.D. 01/16/2019 Last Documented On 9 1:31PM ; [facility] Attention deficit disorder w ithout hyperactivity, predominantly inattentive type 2 WK CK-UP with GIANA S AMANDA M.D. 01/16/2019 Last Documented On 9 1:31PM ; [facility] Depression 2 WK CK-UP with GIANA S AMANDA M.D. 01/16/2019 Last Documented On 9 1:31PM ; [facility] ADHD, predominantly inattentive type 2 WK CK-UP with GIANA S AMANDA M.D. 01/02/2019 Last Documented On 9 10:30AM ; [facility] Anxiety disorder NOS 2 WK CK-UP with GIANA S D IZON M.D. 01/02/2019 Last Documented On 9 10:30AM ; [facility] Depression 2 WK CK-UP with GIANA S AMANDA M.D. 01/02/2019 Last Documented On 9 10:30AM ; [facility] Anxiety disorder NOS NEW PATIENT VISIT with [employer] S AMANDA M.D. 12/19/2018 Last Documented On 9 4:25PM ; [facility] Depression NEW PATIENT VISIT with GIANA PATEL M.D. 12/19/2018 Last Documented On 9 4:25PM ; [facility] Otitis media of the left ear WALK-IN CLI ABDIAZIZ SICK VISIT with ANDREA MOYA SEAFOOD PROCESSOR-C 12/05/2018 Last Documented On 9 11:19AM ; [facility] Patient is approved for part icipation in School, Physical Education, and Sports for 1 year WALK-IN CLINIC SICK VISIT with JUSTICE SMALLS SEAFOOD PROCESSOR-BC 04/11/2018 Last Documented On 8 3:05PM ; [facility] Routine adolescent history a nd physical (12 - 17 yrs) WALK-IN CLINIC SICK VISIT with JUSTICE SMALLS SEAFOOD PROCESSOR-BC 04/11/2018 Last Documented On 8 3:05PM ; [facility] Instructions Includes: Instructions for all patient encounters Instructions to patient Instructions for patient : B reast Self Exam discussed and technique reviewed Last Documented On 3 10:39AM ; [facility] Use a condom during sexual i ntercourse Last Documented On 3 10:39AM ; [facility] Instructed to call if excess brenton bleeding or abdominal/pelvic pain Last Documented On 3 10:39AM ; [facility] Recommend diet and exercise at least 30 min three times per week Last Documented On 3 10:39AM ; [facility] Instructions for patient : B reast Self Exam discussed and technique reviewed Last Documented On 2 9:57AM ; [facility] Use a condom during sexual i ntercourse Last Documented On 2 9:57AM ; [facility] Instructed to call if excess brenton bleeding or abdominal/pelvic pain Last Documented On 2 9:57AM ; [facility] Recommend diet and exercise at least 30 min three times per week Last Documented On 2 9:57AM ; [facility] Instructions for patient : B reast Self Exam discussed and technique reviewed Last Documented On 1 8:40AM ; [facility] Use a condom during sexual i ntercourse Last Documented On 1 8:40AM ; [facility] Instructed to call if excess brenton bleeding or abdominal/pelvic pain Last Documented On 1 8:40AM ; [facility] Recommend diet and exercise at least 30 min three times per week Last Documented On 1 8:40AM ; [facility] Instructions for patient Last Documented On 1 10:21AM ; [facility] Instructions for patient : B reast Self Exam discussed and technique reviewed Last Documented On 0 1:05PM ; [facility] Instructed to call if excess brenton bleeding or abdominal/pelvic pain Last Documented On 0 1:05PM ; [facility] Recommend diet and exercise at least 30 min three times per week Last Documented On 0 1:05PM ; [facility] Instructions for patient Last Documented On 0 7:44PM ; [facility] Instructions for patient : B reast Self Exam discussed and technique reviewed Last Documented On 9 1:18PM ; [facility] Instructed to call if excess brenton bleeding or abdominal/pelvic pain Last Documented On 9 1:18PM ; [facility] Recommend diet and exercise at least 30 min three times per week Last Documented On 9 1:18PM ; [facility] Go to the emergency room if condition worsens Last Documented On 8 1:19PM ; [facility] Maintain a healthy diet Last Documented On 8 3:04PM ; [facility] No Special Instructions or D evices Last Documented On 8 3:04PM ; [facility] Education and Decision Aids were provided during visit for: Patient education RE: abbey batista signals associated with hormonal contraceptive use including abdominal, chest, or leg pain, headaches or visual disturbances Last Documented On 3 10:39AM ; [facility] Patient Education: Daily alexis cium and vitamin D Last Documented On 3 10:39AM ; [facility] Patient education : Last Documented On 3 8:36AM ; [facility] Inquiry and counseling about contraceptive practices Last Documented On 3 8:33AM ; [facility] Patient education RE: abbey batista signals associated with hormonal contraceptive use including abdominal, chest, or leg pain, headaches or visual disturbances Last Documented On 2 9:57AM ; [facility] Patient Education: Daily alexis cium and vitamin D Last Documented On 2 9:57AM ; [facility] Patient education RE: kiannan g signals associated with hormonal contraceptive use including abdominal, chest, or leg pain, headaches or visual disturbances Last Documented On 1 8:40AM ; [facility] Patient Education: Daily alexis cium and vitamin D Last Documented On 1 8:40AM ; [facility] Discussed smoking and drug u se Last Documented On 0 1:05PM ; [facility] Discussed risk-taking behavi or Last Documented On 0 1:05PM ; [facility] Patient education RE: kiannan g signals associated with hormonal contraceptive use including abdominal, chest, or leg pain, headaches or visual disturbances Last Documented On 0 1:05PM ; [facility] Patient Education: Daily alexis cium and vitamin D Last Documented On 0 1:05PM ; [facility] Patient counseling : Use of contraceptives discussed in detail including rare occurrence of heart attack, stroke, and leg clots. Patient understands that smoking increases the risk of serious side effects with any steroid-based contraceptive method Last Documented On 9 9:27AM ; [facility] control consent review ed and signed Last Documented On 9 9:29AM ; [facility] Discussed smoking and drug u se Last Documented On 9 1:18PM ; [facility] Patient education RE: kiannan g signals associated with hormonal contraceptive use including abdominal, chest, or leg pain, headaches or visual disturbances Last Documented On 9 1:18PM ; [facility] Patient Education: Daily alexis cium and vitamin D Last Documented On 9 1:18PM ; [facility] control consent review ed and signed Last Documented On 9 1:18PM ; [facility] Patient education about anti biotics: need to finish even if feeling better Last Documented On 8 1:19PM ; [facility] Discussed use of seat belts Last Documented On 8 3:04PM ; [facility] Discussed bicycle safety Last Documented On 8 3:04PM ; [facility] Discussed sports safety Last Documented On 8 3:04PM ; [facility] Discussed concerns about tel evision : limit time spent watching Last Documented On 8 3:04PM ; [facility] Medical Equipment - Implanted Devices Includes: Current and historical Devices No Medical Equipment Recorded Medications Includes: Current and historical Medications Current Medications (continue as prescribed) Methylphenidate HCl ER 10 MG Oral Tablet Extended Release 10/24/2023 Provider: GIANA CHRIS M.D. Diagnosis: Attn-defct hyper activity disorder, predom inattentive type One tablet daily Last Documented On 10/24/2023 2:28PM By MARIO PATEL MD ; [facility] Carvedilol 12.5 MG Oral Tablet 09/08/2023 Provider: GIANA PATEL M.D. Diagnosis: Essential (prima ry) hypertension One tablet twice a day Last Documented On 09/08/2023 2:57PM By MARIO PATEL MD ; [facility] Past Medications on file Methylphenidate HCl ER 10 MG Oral Tablet Extended Release 09/08/2023 - 10/24/2023 Provider: GIANA PATEL M.D. Diagnosis: Attn-defct hyperactivity disorder, predom inattentive type One tablet daily Last Documented On 10/24/2023 2:17PM By MARIO PATEL MD ; [facility] medroxyPROGESTERone Acetate 150 MG/ML Intramuscular Suspension Prefilled Syringe 08/03/2023 - 07/04/2024 Provider: CELIA COVINGTON RN [facility] Diagnosis: Encounter for surveillance of injectable contraceptive as directed Last Documented On 11:04AM By CELIA LAMB- ; [facility] Citalopram Hydrobromide 20 MG Oral Tablet 07/13/2023 - 09/08/2023 Provider: GIANA PATEL M.D. Diagnosis: Major depressive disorder, single episode, unspecified One tablet dailyNeed Office Visit. Last Documented On 09/08/2023 2:35PM By MARIO PATEL MD ; [facility] Methylphenidate HCl ER 10 MG Oral Tablet Extended Release 07/13/2023 - 09/08/2023 Provider: GIANA PATEL M.D. Diagnosis: Attn-defct hyperactivity disorder, predom inattentive type One tablet dailyNeed Office Visit. Last Documented On 09/08/2023 2:43PM By MARIO PATEL MD ; [facility] medroxyPROGESTERone Acetate 150 MG/ML Intramuscular Suspension Prefilled Syringe 07/05/2023 - 08/03/2023 Provider: CELIA COVINGTON RN [facility] Diagnosis: Encounter for surveillance of injectable contraceptive as directed Last Documented On 10:51AM [facility] ; [facility] Citalopram Hydrobromide 20 MG Oral Tablet 06/06/2023 - 07/13/2023 Provider: GIANA PATEL M.D. Diagnosis: Major depressive disorder, single episode, unspecified One tablet daily Last Documented On 07/13/2023 11:17AM By MARIO PATEL MD ; [facility] Methylphenidate HCl ER 10 MG Oral Tablet Extended Release 06/06/2023 - 07/13/2023 Provider: GIANA PATEL M.D. Diagnosis: Attn-defct hyperactivity disorder, predom inattentive type One tablet daily Last Documented On 07/13/2023 11:17AM By MARIO PATEL MD ; [facility] Amphetamine-Dextroamphet ER 10 MG Oral Capsule Extended Release 24 Hour 04/21/2023 - 09/08/2023 Provider: GIANA PATEL M.D. Diagnosis: Attn-defct hyperactivity disorder, predom inattentive type 1 capsule daily Last Documented On 09/08/2023 2:35PM By MARIO PATEL MD ; [facility] medroxyPROGESTERone Acetate 150 MG/ML Intramuscular Suspension Prefilled Syringe 04/07/2023 - 07/05/2023 Provider: CELIA COVINGTON RN [facility] Diagnosis: Encounter for surveillance of injectable contraceptive as directed Last Documented On 3 8:34AM By CELIA BRAR ; [facility] medroxyPROGESTERone Acetate 150 MG/ML Intramuscular Suspension Prefilled Syringe 08/02/2022 - 04/07/2023 Provider: CELIA LAMB Diagnosis: Encounter for surveillance of injectable contraceptive as directed Last Documented On 9:26AM By CELIA BRAR ; [facility] Citalopram Hydrobromide 20 M G Oral Tablet 10/13/2021 - 08/02/2022 Provider: GIANA PATEL M.D. Diagnosis: One tablet dailyNeed Office Visit. Last Documented On 08/02/2022 9:36AM By Nissa William ; [facility] medroxyPROGESTERone Acetate 150 MG/ML Intramuscular Suspension Prefilled Syringe 07/28/2021 - 10/27/2022 Provider: CELIA LAMB Diagnosis: Irregular menstruation, unspecified as directed please dispense and RTC every 12 weeks for injection Last Documented On 10/27/2022 10:02AM By Nissa William ; [facility] medroxyPROGESTERone Acetate 150 MG/ML Intramuscular Suspension Prefilled Syringe 07/07/2021 - 07/28/2021 Provider: CELIA COVINGTON RN [facility] Diagnosis: Irregular menstruation, unspecified DISPENSE AND TAKE TO OFFICE no further refills without annual exam Last Documented On 8:40AM By CELIA BRAR ; [facility] Citalopram Hydrobromide 20 MG Oral Tablet 01/13/2021 - 07/28/2021 Provider: GIANA PATEL M.D. Diagnosis: Anxiety disorder , unspecified TAKE 1 TABLET BY MOUTH DAILY Last Documented On 07/28/2021 8:20AM By Nissa William ; [facility] Citalopram Hydrobromide 20 MG Oral Tablet 10/15/2020 - 01/13/2021 Provider: GIANA PATEL M.D. Diagnosis: Anxiety disorder , unspecified TAKE 1 TABLET BY MOUTH DAILY Need Office Visit. Last Documented On 01/13/2021 11:38AM By MARIO PATEL MD ; [facility] medroxyPROGESTERone Acetate 150 MG/ML Intramuscular Suspension 07/17/2020 - 07/07/2021 Provider: CELIA COVINGTON RN [facility] Diagnosis: Irregular menstruation, unspecified as directed DISPENSE AND PT TO RETURN TO OFfICE FOR ADMINISTRATION Last Documented On 7:48AM By CELIA COVINGTON [facility] ; [facility] Citalopram Hydrobromide 20 MG Oral Tablet 05/29/2020 - 10/15/2020 Provider: GIANA PATEL M.D. Diagnosis: Anxiety disorder , unspecified One tablet daily Last Documented On 10/15/2020 9:02AM By MARIO PATEL MD ; [facility] Magic Mouthwash compounded Oral Suspension 05/21/2020 - 05/29/2020 Provider: ANDREA MOYA SEAFOOD PROCESSOR-C Diagnosis: Recurrent oral aphthae 5 ml swish and swallow x6h Last Documented On 05/29/2020 4:12PM By MARIO PATEL MD ; [facility] Cephalexin 500 MG Oral Capsule 05/19/2020 - 05/29/2020 Provider: [facility] Diagnosis: Acute pharyngiti s, unspecified 1 CAPSULE TWO TIMES A DAY Last Documented On 05/29/2020 3:50PM By Lety Morelos [facility] ; [facility] Citalopram Hydrobromide 20 MG Oral Tablet 04/22/2020 - 05/29/2020 Provider: GIANA PATEL M.D. Diagnosis: Anxiety disorder , unspecified One tablet daily Last Documented On 05/29/2020 4:12PM By MARIO PATEL MD ; [facility] Naproxen 500 MG Oral Tablet 10/16/2019 - 04/22/2020 Provider: GIANA PATEL M.D. Diagnosis: Strain of musc/fasc/tend at shldr/up arm, right arm, init One tablet twice a day as needed Last Documented On 04/22/2020 4:52PM By MARIO PATEL MD ; [facility] Citalopram Hydrobromide 20 MG Oral Tablet 10/16/2019 - 04/22/2020 Provider: GIANA PATEL M.D. Diagnosis: Anxiety disorder , unspecified One tablet daily Last Documented On 04/22/2020 4:54PM By MARIO PATEL MD ; [facility] medroxyPROGESTERone Acetate 150 MG/ML Intramuscular Suspension 07/23/2019 - 07/17/2020 Provider: CELIA COVINGTON RN [facility] Diagnosis: Encounter for in itial prescription of other contraceptives as directed DISPENSE AND PT TO RETURN TO OFfICE FOR ADMINISTRATION Last Documented On 0 1:01PM By CELIA BRAR ; [facility] Ritalin 20 MG Oral Tablet 06/17/2019 - 10/16/2019 Prov ider: GIANA PATEL M.D. Diagnosis: 1 tab in am, 1 tab at noon Last Documented On 10/16/2019 5:18PM By MARIO PATEL MD ; [facility] Concerta 36 MG Oral Tablet Extended Release 06/12/2019 - 10/16/2019 Provider: GIANA PATEL M.D. Diagnosis: One tablet daily Last Documented On 10/16/2019 5:18PM By MARIO PATEL MD ; [facility] Citalopram Hydrobromide 40 MG Oral Tablet 06/12/2019 - 04/22/2020 Provider: GIANA PATEL M.D. Diagnosis: Major depressive disorder, single episode, unspecified One tablet at bed time Last Documented On 04/22/2020 4:52PM By MARIO PATEL MD ; [facility] Xulane 150-35 MCG/24HR Transdermal Patch Weekly 06/05/2019 - 07/23/2019 Provider: CELIA COVINGTON RN [facility] Diagnosis: Irregular menstr uation, unspecified as directed 1 patch weekly a s directed no further refills pt. needs appt. Last Documented On 9 9:27AM By CELIA BRAR ; [facility] Wellbutrin SR 100MG Oral Tablet Extended Release 12 Hour 03/15/2019 - 10/16/2019 Provider: GIANA PATEL M.D. Diagnosis: Major depressive disorder, single episode, unspecified One tablet twice a day Last Documented On 10/16/2019 5:18PM By MARIO PATEL MD ; [facility] Adderall XR 30MG Oral Capsule Extended Release 24 Hour 03/15/2019 - 10/16/2019 Provider: GIANA PATEL M.D. Diagnosis: Attn-defct hyper activity disorder, predom inattentive type 1 capsule daily Last Documented On 10/16/2019 5:18PM By MARIO PATEL MD ; [facility] Citalopram Hydrobromide 40MG Oral Tablet 03/15/2019 - 06/12/2019 Provider: GIANA PATEL M.D. Diagnosis: Major depressive disorder, single episode, unspecified One tablet at bed time Last Documented On 06/12/2019 4:51PM By MARIO PATEL MD ; [facility] Xulane 150-35MCG/24HR Transdermal Patch Weekly 02/19/2019 - 06/05/2019 Provider: CELIA COVINGTON RN [facility] Diagnosis: Irregular menstruation, unspecified as directed APPLY ONE PATCH DIRECTED FIRST TUESDAY AFTER MENSES BEGINS REMOVE AFTER 7 DAYS AND REAPPLY PATCH X 3 WEEKS Last Documented On 9 2:50PM By CELIA COVINGTON CHRISTINE- ; [facility] Citalopram Hydrobromide 40MG Oral Tablet 02/09/2019 - 03/15/2019 Provider: GIANA PATEL M.D. Diagnosis: Major depressive disorder, single episode, unspecified One tablet at bed time Last Documented On 03/15/2019 11:37AM By MARIO PATEL MD ; [facility] Zithromax Z-Pop 250MG Oral Tablet 01/19/2019 - 02/09/2019 Provider: GIANA PATEL M.D. Diagnosis: use as directed Last Documented On 02/09/2019 9:35AM By Lety Morelos Britney ; [facility] Adderall XR 20MG Oral Capsul e Extended Release 24 Hour 01/16/2019 - 03/15/2019 Provider: GIANA CHRIS M.D. Diagnosis: 1 capsule daily Last Documented On 03/15/2019 11:34AM By MARIO PATEL MD ; [facility] Adderall XR 10MG Oral Capsule Extended Release 24 Hour 01/02/2019 - 03/15/2019 Provider: GIANA PATEL M.D. Diagnosis: Attn-defct hyper activity disorder, predom inattentive type 1 capsule daily in morning Last Documented On 03/15/2019 11:34AM By MARIO PATEL MD ; [facility] Citalopram Hydrobromide 40MG Oral Tablet 01/02/2019 - 02/09/2019 Provider: GIANA PATEL M.D. Diagnosis: Major depressive disorder, single episode, unspecified One tablet at bed time Last Documented On 02/09/2019 9:35AM By Lety JOHNSON ; [facility] Citalopram Hydrobromide 20MG Oral Tablet 12/19/2018 - 01/16/2019 Provider: GIANA PATEL M.D. Diagnosis: Anxiety disorder , unspecified One tablet at bed time Last Documented On 01/16/2019 9:51AM By Lety JOHNSON ; [facility] [id number] Otic Solution 12/05/2018 - 12/19/2018 Provider: ANDREA MOYA SEAFOOD PROCESSOR-C Diagnosis: Otitis media, unspecified, left ear as directed 4 drops in affected ear TID Last Documented On 12/19/2018 2:30PM By Lety JOHNSON ; [facility] Macrobid 100MG Oral Capsule 05/13/2018 - 12/05/2018 Provider: ANNY RODRIGUEZ SEAFOOD PROCESSOR-C Diagnosis: Acute cystitis w ith hematuria 1 CAPSULE TWO TIMES A DAY. TAKE WITH FOOD. Last Documented On 12/05/2018 11:08AM By Sisi Vu MA ; [facility] Cephalexin 250MG/5ML Oral Suspension Reconstituted 10/14/2016 - 12/05/2018 Provider: VIJAY NASH SEAFOOD PROCESSOR-BC Diagnosis: Streptococcal pharyngitis 10 ml twice daily for ten days Last Documented On 12/05/2018 11:08AM By Sisi Vu MA ; [facility] Medications Administered Includes: Administered Medications in patient's chart Medications Administered Diagnosis Date Pro vider medroxyPROGESTERone Acetate 150 MG/ML IM EMERALD Encounter for surveillance of injectable contraceptive 08/02/2022 CELIA COVINGTON RN [facility] Pt tolerated well Last Documented On 2 10:04AM By Nissa William ; [facility] medroxyPROGESTERone Acetate 150 MG/ML IM EMERALD 07/30/2019 CELIA COVINGTON RN [facility] patient tolerated well ad Last Documented On 9 9:31AM By BAMBI GONSALES CMA ; [facility] medroxyPROGESTERone Acetate 400 MG/ML IM SUSP 07/17/2020 CELIA COVINGTON RN [facility] Last Documented On 0 1:52PM By Nicanor JOHNSON ; [facility] medroxyPROGESTERone Acetate 150 MG/ML IM EMERALD Encounter for surveillance of injectable contraceptive 07/07/2021 CELAI COVINGTON RN [facility] Pt tolerated well. Last Documented On 1 3:27PM By Nissa William ; [facility] medroxyPROGESTERone Acetate 150 MG/ML IM EMERALD Encounter for surveillance of injectable contraceptive 07/05/2023 CELIA COVINGTON RN [facility] Pt tolerated well Last Documented On 3 2:03PM By Nissa William ; [facility] medroxyPROGESTERone Acetate 150 MG/ML IM EMERALD Encounter for surveillance of injectable contraceptive 04/21/2022 CELIA COVINGTON RN [facility] Pt tolerated well Last Documented On 2 10:26AM By Nissa William ; [facility] medroxyPROGESTERone Acetate 150 MG/ML IM EMERALD 04/14/2021 CELIA COVINGTON RN [facility] Pt tolerated well. Last Documented On 1 3:44PM By Arnold JOHNSON ; [facility] medroxyPROGESTERone Acetate 150 MG/ML IM EMERALD Encounter for surveillance of injectable contraceptive 04/08/2023 HITESH BROWN CHRISTINE- Pt tolerated well. Last Documented On 3 10:36AM By Serena JOHNSON ; [facility] medroxyPROGESTERone Acetate 150 MG/ML IM SUSP Encounter for surveillance of injectable contraceptive 04/03/2020 CELIA COVINGTON RN [facility] Last Documented On 0 3:21PM By Sisi Vu MA ; [facility] [facility] medroxyPROGESTERone Acetate 150 MG/ML IM EMERALD Encounter for surveillance of injectable contraceptive 01/13/2023 CELIA COVINGTON RN [facility] Pt tolerated well Last Documented On 3 3:09PM By Nissa William ; [facility] medroxyPROGESTERone Acetate 150 MG/ML IM EMERALD Encounter for surveillance of injectable contraceptive 01/13/2022 CELIA COVINGTON RN [facility] Pt tolerated well. Last Documented On 2 11:01AM By Nissa William ; [facility] medroxyPROGESTERone Acetate 150 MG/ML IM EMERALD Encounter for surveillance of injectable contraceptive 01/13/2021 CELIA COVINGTON RN [facility] Last Documented On 1 1:23PM By Natasha Townsend MA ; [facility] medroxyPROGESTERone Acetate 150 MG/ML IM SUSP Encounter for surveillance of injectable contraceptive 01/10/2020 CELIA COVINGTON RN [facility] Last Documented On 0 9:39AM By Evelyn Herman MA ; [facility] medroxyPROGESTERone Acetate 150 MG/ML IM EMERALD Encounter for surveillance of injectable contraceptive 10/28/2022 CELIA COVINGTON RN [facility] Pt tolerated well. Last Documented On 3 3:46PM By Nissa William ; [facility] medroxyPROGESTERone Acetate 150 MG/ML IM SUSP 10/22/2019 CELIA COVINGTON RN [facility] patient tolerated well ad Last Documented On 0 2:40PM By BAMBI GONSALES CMA ; [facility] medroxyPROGESTERone Acetate 150 MG/ML IM EMERALD Encounter for surveillance of injectable contraceptive 10/15/2021 CELIA COVINGTON RN [facility] Pt tolerated well. Last Documented On 2 3:47PM By Nissa William ; [facility] medroxyPROGESTERone Acetate 150 MG/ML IM EMERALD 10/15/2020 CELIA COVINGTON RN [facility] Injection to left glut Last Documented On 1 10:21AM By Nicanor JOHNSON ; [facility] medroxyPROGESTERone Acetate 150 MG/ML IM EMERALD Encounter for surveillance of injectable contraceptive 10/05/2023 CELIA COVINGTON RN [facility] Depo administered IM left gl ut. pt tolerated well and aware to return in 12 weeks for next depo......ed Last Documented On 4 10:23AM By MARIA GUADALUPE JOHNSON ; [facility] Results Includes: Results from 10/15/2023 through 10/15/2024 No Results Recorded For Specified Dates History of Present Illness History of Present Illness not supported for this document type No History of Present Illness Recorded Social History Description Last Updated Exercising regularly 10/05/2023 Last Documented On 4 10:18AM ; [facility] Marital history single 10/05/2023 Last Documented On 4 10:18AM ; [facility] Not using alcohol 10/05/2023 Last Documented On 4 10:18AM ; [facility] Not using drugs 10/05/2023 Last Documented On 4 10:18AM ; [facility] Sexually active with 3 partners in the l ast year 10/05/2023 Last Documented On 4 10:18AM ; [facility] Tobacco non-user never cigarettes, just vapes 10/05/2023 Last Documented On 4 10:18AM ; [facility] Tobacco use vaping 09/08/2023 Last Documented On 4 2:44PM ; [facility] Currently in school Student 09/08/2023 Last Documented On 4 2:44PM ; [facility] Current smoker 09/08/2023 Last Documented On 4 2:44PM ; [facility] Smoking electronic cigarettes 09/08/2023 Last Documented On 4 2:44PM ; [facility] Educational level sophomore [employer] 08/03/2023 Last Documented On 3 10:53AM ; [facility] control is being practiced Depo Last Documented On 3 10:53AM ; [facility] Education history 08/03/2023 Last Documented On 3 10:53AM ; [facility] Not a smoker 08/03/2023 Last Documented On 3 10:53AM ; [facility] Sexually active 08/03/2023 Last Documented On 3 10:53AM ; [facility] Single 08/03/2023 Last Documented On 3 10:53AM ; [facility] Working part-time 08/03/2023 Last Documented On 3 10:53AM ; [facility] Smoking Status Unknown Procedures and Surgical History Includes: Procedures from 10/15/2023 through 10/15/2024 Procedures Code Diagnosis Performing Provider Service Location Service Date ELECTROCARDIOGRAM TRACING 82001 Palpitations YOANA BRAVO MD [facility] 11/15/2023 Last Documented On 4 2:44PM ; [facility] ELECTROCARDIAGRAM READING FEE (EKG) 19862 Palpitations YOANA BRAVO MD [facility] 11/15/2023 Last Documented On 4 2:44PM ; [facility] ECG REVIEW INTERP ONLY 49248 Palpitations, Supraventricular tachycardia, unspecified ALICIA BRAVO MD [facility] 11/10/2023 Last Documented On 4 1:49PM ; [facility] Medical History Includes: Medical History in patient's chart Description Last Updated Sexually active 10/05/2023 Last Documented On 4 10:18AM ; [facility] Contraception: depo- last depo was given 07/05/23 10/05/2023 Last Documented On 4 10:18AM ; [facility] Last pap smear date 08/03/2023 4 Last Documented On 4 10:18AM ; [facility] Result: normal cultures, no pap due to a ge 10/05/2023 Last Documented On 4 10:18AM ; [facility] Diastolic blood pressure 80 mmHg 024 Last Documented On 4 3:25PM ; [facility] Systolic blood pressure 130 mmHg 024 Last Documented On 4 3:25PM ; [facility] Medication regimen noncompli ance not taking citlopram and ritalin x 1 month 09/08/2023 Last Documented On 4 2:44PM ; [facility] Primary Care Provider: Dr. Patel 023 Last Documented On 3 10:53AM ; [facility] LMP: NONE d/t DMPA 08/03/2023 Last Documented On 3 10:53AM ; [facility] Not taking medication 04/21/2023 Last Documented On 3 3:03PM ; [facility] 0 02/19/2019 Last Documented On 9 1:55PM ; [facility] Family History Includes: Family History in patient's chart Description Last Updated Maternal history of systemic hypertensio n Mom 10/05/2023 Last Documented On 4 10:18AM ; [facility] maternal grandmother--lung cancer ~mater nal grandfather--lung cancer 02/19/2019 Last Documented On 9 1:55PM ; [facility] Family history of diabetes mellitus Mate rnal Grandfather 02/19/2019 Last Documented On 9 1:55PM ; [facility] Family history of heart disease maternal grandfather 02/19/2019 Last Documented On 9 1:55PM ; [facility] Family history of hypertensi on mother, maternal grandfather, maternal grandmother 02/19/2019 Last Documented On 9 1:55PM ; [facility] Review of Systems Review of Systems not supported for this document type No Review of Systems Recorded Mental Status No Mental Status Recorded Functional Status No Functional Status Recorded Physical Exam Physical Exam not supported for this document type No Physical Exam Recorded Immunizations Includes: Immunizations in patient's chart Vaccine Dose # Date Site Reaction(s) Status Source DTaP (Infanrix) 1 06/17/2004 Complete (Rep orted) Patient Last Documented On 9 2:58PM ; [facility] DTaP (Infanrix) 1 01/30/2008 Complete (Rep orted) Patient Last Documented On 9 2:58PM ; [facility] Hep A, ped/adol -(HAVRIX) -2 dose 1 03/18/2005 Complete (Reported) Patient Last Documented On 9 2:58PM ; [facility] Hep A, ped/adol -(HAVRIX) -2 dose 1 05/10/2006 Complete (Reported) Patient Last Documented On 9 2:58PM ; [facility] Hep B (Engerix-B/Recombivax HB) Ped/Adult 3 dose 1 2003 Complete (Reported) Pa tient Last Documented On 9 2:58PM ; [facility] Hib 1 2003 Complete (Reported) P atient Last Documented On 9 2:58PM ; [facility] Hib 1 2003 Complete (Reported) P atient Last Documented On 9 2:58PM ; [facility] Hib 1 2003 Complete (Reported) P atient Last Documented On 9 2:58PM ; [facility] Hib 1 06/17/2004 Complete (Reported) P atient Last Documented On 9 2:58PM ; [facility] Meningococcal ACYW (Menveo) 1 04/22/2020 Left Deltoid Complete (Administered) [facility] Last Documented On 0 3:57PM ; [facility] MMR 1 03/16/2004 Complete (Reported) P atient Last Documented On 9 2:58PM ; [facility] MMR 1 04/03/2007 Complete (Reported) P atient Last Documented On 9 2:58PM ; [facility] MMR 1 01/30/2008 Complete (Reported) P atient Last Documented On 9 2:58PM ; [facility] PCV (Prevnar) 1 2003 Complete (Repor jackie) Patient Last Documented On 9 2:58PM ; [facility] PCV (Prevnar) 1 2003 Complete (Repor jackie) Patient Last Documented On 9 2:58PM ; [facility] PCV (Prevnar) 1 2003 Complete (Repor jackie) Patient Last Documented On 9 2:58PM ; [facility] PCV (Prevnar) 1 06/17/2004 Complete (Repor jackie) Patient Last Documented On 9 2:58PM ; [facility] PEDIARIX (QLwE-QilN-DBV) 1 2003 Comp lete (Reported) Patient Last Documented On 9 2:58PM ; [facility] PEDIARIX (RUoA-IghU-COW) 1 2003 Comp lete (Reported) Patient Last Documented On 9 2:58PM ; [facility] PEDIARIX (ENzO-YqhP-QRT) 1 2003 Comp lete (Reported) Patient Last Documented On 9 2:58PM ; [facility] Polio ,IPV (IPOL) 1 01/30/2008 Complete (R eported) Patient Last Documented On 9 2:58PM ; [facility] Varicella 1 03/16/2004 Complete (Reported) Patient Last Documented On 9 2:58PM ; [facility] Varicella 1 04/03/2007 Complete (Reported) Patient Last Documented On 9 2:58PM ; [facility] Varicella 1 01/30/2008 Complete (Reported) Patient Last Documented On 9 2:58PM ; [facility] Allergies Includes: Active, inactive, and resolved Allergies No Known Allergies Encounters Includes: Encounters from 10/15/2023 through 10/15/2024 Encounter Provider Location Date Check-In Time Check- Out Time Diagnosis [Patient Encounter] GIANA PATEL M.D. 4 11/15/2023 3:53PM 11/15/2023 11:59PM [facility] NIYAH PARKER [facility] 4 10:06AM 10:49AM Insurance Includes: Active Insurance Policies Plan Name Member ID Group # Subscriber Relationship Effect brenton Dates 1 - [facility] [id number] ANGELICA PARTIDA Child Clinical Notes Includes: Signed Clinical Notes starting from 09/24/2022 No Clinical Notes Recorded
--- OUTSIDE RECORDS SUMMARY | 2024-10-15 17:05 | XMS_ITS | Clinical Summary ---
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 Active Last Documented On 9 1:29PM ; [facility] Anxiety Disorder Nos 01/02/2019 GIANA PATEL M.D. Active Last Documented On 9 10:26AM ; [facility] Depression 01/02/2019 GIANA PATEL M.D. Acti ve Last Documented On 9 10:26AM ; [facility] Plan of Treatment No Plan of Treatment [...] 10/24/2023 2:28PM By MARIO PATEL MD ; [facility] Carvedilol 12.5 MG Oral Tablet 09/08/2023 Provider: GIANA PATEL M.D. Diagnosis: Essential (prima ry) hypertension One tablet twice a day Last Documented On 09/08/2023 2:57PM By MARIO PATEL MD ; [facility] Medications Administered Includes: Administered Medications from this encounter No Administered Medications Recorded Results Includes: Results discussed during this encounter No Results Recorded For Specified Dates History of Present Illness Includes: History of Present Illness from this encounter No History of Present Illness Recorded Social History No Social History Recorded - Smoking Status Unknown Procedures and Surgical History Includes: Procedures from this encounter Procedures Code Diagnosis Performing Provider Service Location Service Date ELECTROCARDIAGRAM READING FEE (EKG) 54565 Palpitations YOANA BRAVO MD [facility] 11/15/2023 Last Documented On 4 2:44PM ; [facility] ELECTROCARDIOGRAM TRACING 53774 Palpitations YOANA BRAVO MD [facility] 11/15/2023 Last Documented On 4 2:44PM ; [facility] Medical History Includes: Medical History addressed during [...] Allergies Includes: Active Allergies No Known Allergies Encounters Encounter Provider Location Date Check-In Time Check- Out Time Diagnosis [facility] CENTER CHECK UP NIYAH PARKER [facility] 4 10:06AM 10:49AM Insurance Includes: Active Insurance Policies Plan Name Member ID Group # Subscriber Relationship Effect brenton Dates - [facility] [id number] ANGELICA PARTIDA Child Clinical Notes Includes: Clinical Notes from this encounter No Clinical Notes Recorded
--- OUTSIDE RECORDS SUMMARY | 2024-10-15 17:05 | XMS_ITS | Clinical Summary ---
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 Active Last Documented On 9 1:29PM ; [facility] Anxiety Disorder Nos 01/02/2019 GIANA PATEL M.D. Active Last Documented On 9 10:26AM ; [facility] Depression 01/02/2019 GIANA PATEL M.D. Acti ve Last Documented On 9 10:26AM ; [facility] Plan of Treatment No Plan of [...] 10/24/2023 2:28PM By MARIO PATEL MD ; [facility] Carvedilol 12.5 MG Oral Tablet 09/08/2023 Provider: GIANA PATEL M.D. Diagnosis: Essential (prima ry) hypertension One tablet twice a day Last Documented On 09/08/2023 2:57PM By MARIO PATEL MD ; [facility] Medications Administered Includes: Administered [...] Subscriber Relationship Effect brenton Dates 1 - [facility] [id number] ANGELICA PARTIDA Child Clinical Notes Includes: Clinical Notes from this encounter No Clinical Notes Recorded
--- OUTSIDE RECORDS SUMMARY | 2024-10-15 17:05 | XMS_ITS | Patient Health Summary ---
Author Organization [facility] Address [address] [place] [address] Care Team Providers Care Anesthesia Tech Name Role Phone Phani Choe MD Primary Care Provider [phone] Phani Choe MD Unavailable [phone] Note from [facility],non-owned Affiliates and Associated Physician Practices is amultiple site organization consisting of ambulatory clinics and hospital sitesin [place], [place], [place] and [place]. This disclosure is being madepursuant to the Care Everywhere program and may not contain all information available regarding this patient. Last updated 18.[facility] Allergies No known active allergies Medications * Be aware that medications may not be up to date on this document. Alwaysverify current medications with the patient. * amphetamine-dextroamphetamine (ADDERALL) 30 MG tablet Active Problems Problem Noted Date Diagnosed Date [...] Mass Index 22.83 11/22/2016 9:30 AM CDT Procedures * SARS-COV-2 (COVID-19) IN HOUSE(Performed 01/28/2020) Performed for Cough Results * SARS-COV-2 (COVID-19) IN HOUSE (01/28/2020 12:17 PM CDT) COVID-19 PCR Not detected Not detected, Invalid 01/29/2020 2:27 PM CDT [facility] Microbiology SPECIMEN FROM NASOPHARYNGEAL STRUCTURE / Unknown Collection / Unknown 01/28/2020 12:17 PM CDT 01/28/2020 8:15 PM CDT Narrative [facility] - 01/29/2020 2:27 PM CDT This Real Time RT-PCR assay was developed and its performance characteristics determined by [facility]. This test has been authorized by the Food and Drug administration (FDA)under an Emergency Use Authorization (EUA). This test has been validated in accordance with the FDA's guidance document Policy for Diagnostic Testing in Laboratories Certified to perform High Complexity Testing under CLIA prior to Emergency Use Authorization for Coronavirus Disease-2019 during the Public Health Emergency issued on November 03, 2019. FDA independent review of this validation is pending. This test is only authorized for the duration of time the declaration that circumstances exist justifying the authorization of emergency use of in vitro diagnostic tests for detection of SARS-CoV-2 virus and/or diagnosis of COVID-19 infection under section 564(b)(1) of the Act, 21 U.S.C 360bbb-3 (b)(1), unless the authorization is terminated or revoked sooner. Provider Unknown LAB - MICROBIOLOGY O RDERABLES [facility] [address], [place] [address], [facility] [phone] Care Teams Anesthesia Tech Relationship Specialty Start Date End Date Phani Choe MD [address] [place] [address] PCP - General 02/11/20 Phani Choe MD [address] [place] [address] Pediatrics 02/11/20
--- OUTSIDE RECORDS SUMMARY | 2024-10-15 17:05 | XMS_ITS | Clinical Summary ---
Author Organization [facility] Address [facility] [place] [address] Care Team Providers Care Thinner Sprayer Name Role Phone Gerard Martines MD Primary Care Provider [phone] Allergies No known active allergies Medications citalopram 20 MG tablet Citalopram Hydrobromide 20 MG Oral Tablet QTY: 30 tablet Days: 30 Refills: 0 Written: 10/15/20 Patient Instructions: TAKE 1 TABLET BY MOUTH DAILY Need Office Visit. 0 Active Family History Medical History Relation Comments No Known Problems Father Hypertension Mother Relation Status Comments Father Mother Social History Tobacco Use Types Packs/Day Years Used Date Smoking Tobacco: Never Smokeless Tobacco: Never Alcohol Use Standard Drinks/Week Comments Never 0 (1 standard drink = 0.6 oz pur e alcohol) AUDIT-C Answer Date Recorded Q1: How often do you have a drink containing alc ohol? Never 11/23/2020 Average Number of Drinks Not on file 021 Frequency of Binge Drinking Not on file 11/04 Comments No Sex and Gender Information Value Date Recorded Sex Assigned at Not on file Legal Sex Female 7:44 PM CDT Gender Identity Not on file Sexual Orientation Not on file Last Filed Vital Signs Vital Sign Reading Time Taken Comments Blood Pressure 139/76 11/23/2020 7:49 PM CDT Pulse 100 11/23/2020 7:49 PM CDT Temperature 36.9 C (98.5 F) 11/23/2020 7:49 PM CDT Respiratory Rate 18 11/23/2020 7:49 PM CDT Oxygen Saturation 98% 11/23/2020 7:49 PM CDT Inhaled Oxygen Concentration - - Weight 74.4 kg (164 lb) 11/23/2020 7:49 PM CDT Height 171 cm (5' 7.32 ) 11/23/2020 7:49 PM CDT Body Mass Index 25.44 11/23/2020 7:49 PM CDT Plan of Treatment Health Maintenance Due Date Last Done Comments Cervical Cancer Screening Pap Smear (Age 21 to 29) Every 3 Years 2003 Cervical Cancer Screening 2003 Annual Physical 2006 HPV Vaccines (1 - 3-dose series) 2018 Meningococcal B Vaccine (1 of 2 - Standard) 2019 Hepatitis C 2021 DTaP, Tdap and Td Vaccines (7 - Td or Tdap) 02/23/2024 02/22/2014, 01/30/2008, 06/17/2004, Additional history exists COVID-19 Vaccine ( season) 2024 Influenza Adult (#1) 2024 Hepatitis B Vaccines Completed 2003, 2003, 2003, Additional history exists Pneumococcal Vaccine: Pediatrics (0 to 5 Years) and At-Risk Patients (6 to 64 Years) Aged Out 06/17/2004, 2003, 2003, Additional history exists No longer eligible based on patient's age to complete this topic Meningococcal Vaccine Completed 04/22/2020, 014 RSV Immunizations Under 20 Months Aged Out No longer eligible based on patient's age to complete this topic Insurance [employer] Member Subscriber Plan / Payer (Ef fective 2020-Present) Name:Neema Craig Relation to Subscriber:Child Name:ANGELICA GAYTAN Date of :1971 (Home) [address]: [address] [place] [id number] Payer ID:Not on file Group ID:[id number] Type:Not on file Address: [id number] [place] [id number] Care Teams Thinner Sprayer Relationship Specialty Start Date End Date Gerard Martines MD [address] [place] [id number] PCP - General FAMILY PRACTICE 11/23/20
--- OUTSIDE RECORDS SUMMARY | 2024-10-15 17:05 | XMS_ITS | Clinical Summary ---
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 Active Last Documented On 9 1:29PM ; [facility] Anxiety Disorder Nos 01/02/2019 GIANA PATEL M.D. Active Last Documented On 9 10:26AM ; [facility] Depression 01/02/2019 GIANA PATEL M.D. Acti ve Last Documented On 9 10:26AM ; [facility] Plan of Treatment No Plan [...] MD ; [facility] Carvedilol 12.5 MG Oral Tablet [...] Encounters Encounter Provider Location Date Check-In Time Check-Out Time Diagnosis [Patient Encounter] GIANA PATEL M.D. 07/09/2024 3:53PM 11:59PM Insurance Includes: Active Insurance Policies Plan Name Member ID Group # Subscriber Relationship Effect brenton Dates - [facility] [id number] ANGELICA PARTIDA Child Clinical Notes Includes: Clinical Notes from this encounter No Clinical Notes Recorded
--- OUTSIDE RECORDS SUMMARY | 2024-10-15 17:05 | XMS_ITS | Encounter Summary ---
Author Organization [facility] Address [address] [place] [address] Phone Care Team Providers Care Fiber Designer Name Role Phone Phani Choe MD Primary Care Provider [phone] Gerard Martines MD Primary Care Provider [phone] Encounter Details Date Type Department Care Team (Late st Contact Info) Description 01/25/2020 Transcribe Orders [facility] Preop/Pacu II [address] [place] [address] Henok Vu MD [address] [place] [address] Pre-op testing (Primary Dx) Social History Tobacco Use Types Packs/Day Years [...] on file Sexual Orientation Not on file COVID-19 Exposure Response Date Recorded In the last month, have you been in contact with someone who was confirmed or suspected to have Coronavirus / COVID-19? No / Unsure 01/28/2020 11:45 AM CDT documented as of this encounter Plan of Treatment Not on file documented as of this encounter Results * (ABNORMAL) HEMOGLOBIN & HEMATOCRIT (H&H) (01/28/2020 12:10 PM CDT) HEMOGLOBIN (HGB) 14.2(H) 10.8 - 13.3 g/dL 01/28/2020 12:25 PM CDT [facility] HEMATOCRIT (HCT) 43.0(H) 33.4 - 40.4 % 01/28/2020 12:25 PM CDT [facility] Blood Venipuncture / Unknown 01/28/2020 12:10 PM CDT 01/28/2020 12:18 PM CDT us Henok Vu MD HEMATOLOGY ORDERABLES Final R esult [facility] [address] [place] [address] documented in this encounter Visit Diagnoses Diagnosis Pre-op testing- Primary Preoperative examination, unspecified documented in this encounter Additional Health Concerns Infection Onset Date Last Indicated Resolved Time COVID - 19 01/28/2020 01/28/2020 02/06/2020 8:18 AM CDT documented as of this encounter Care Teams Fiber Designer Relationship Specialty Start Date End Date Phani Choe MD [address] [place] [id number] PCP - General Pediatrics 11/18/16 01/27/20 Gerard Martines MD [address] [place] [address] PCP - General Family Medicine 01/28/20 documented as of this encounter
--- OUTSIDE RECORDS SUMMARY | 2024-10-15 17:05 | XMS_ITS | Clinical Summary ---
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 Active Last Documented On 9 1:29PM ; [facility] Anxiety Disorder Nos 01/02/2019 GIANA PATEL M.D. Active Last Documented On 9 10:26AM ; [facility] Depression 01/02/2019 GIANA PATEL M.D. Acti ve Last Documented On 9 10:26AM ; [facility] Plan of Treatment No Plan of [...] 10/24/2023 2:28PM By MARIO PATEL MD ; [facility] Carvedilol 12.5 MG Oral Tablet 09/08/2023 Provider: GIANA PATEL M.D. Diagnosis: Essential (prima ry) hypertension One tablet twice a day Last Documented On 09/08/2023 2:57PM By MARIO PATEL MD ; [facility] Medications Administered Includes: Administered [...] Diagnosis Performing Provider Service Location Service Date ECG REVIEW INTERP ONLY [address] Palpitations, Supraventricular tachycardia, unspecified ALICIA BRAVO MD [facility] OP HRT 11/10/2023 Last Documented On 4 1:49PM ; [facility] Medical History Includes: Medical History addressed during [...] Location Date Check-In Time Check-Out Time Diagnosis HOLTOR MONITOR [facility] 10/14/2023 10:15AM 9:23AM Insurance Includes: Active Insurance Policies Plan Name Member ID Group # Subscriber Relationship Effect brenton Dates 1 - [facility] [id number] ANGELICA PARTIDA Child Clinical Notes Includes: Clinical Notes from this encounter No Clinical Notes Recorded
--- OUTSIDE RECORDS SUMMARY | 2024-10-15 17:05 | XMS_ITS | Encounter Summary ---
Author Organization [facility] Address [address] [place] [address] Care Team Providers Care Tourist Information Assistant Name Role Phone Phani Choe MD Primary Care Provider [phone] Phani Choe MD Primary Care Provider [phone] Phani Choe MD Unavailable [phone] Encounter Details Date Type Department Care Team (Late st Contact Info) Description 01/28/2020 Lab Requisition [facility] MICROBIOLOGY [address] [place] [address] Unknown, Provider Cough Social History Tobacco Use Types Packs/Day Years Used Date Smoking Tobacco: Never Assessed Sex and Gender Information Value Date Recorded Sex Assigned at Not on file Gender Identity Not on file Sexual Orientation Not on file documented as of this encounter Plan of Treatment Not on file documented as of this encounter Procedures Procedure Name Priority Date/Time Associated Diagnosis Comments SARS-COV-2 (COVID-19) IN HOUSE Routine 01/28/2020 12:17 PM CDT Cough documented in this encounter Results * SARS-COV-2 (COVID-19) IN HOUSE (01/28/2020 12:17 PM CDT) COVID-19 PCR Not detected Not detected, Invalid 01/29/2020 2:27 PM CDT [facility] MICROBIOLOGY Microbiology SPECIMEN FROM NASOPHARYNGEAL STRUCTURE / Unknown Collection / Unknown 01/28/2020 12:17 PM CDT 01/28/2020 8:15 PM CDT Narrative [facility] MICROBIOLOGY - 01/29/2020 2:27 PM CDT This Real Time RT-PCR assay was developed and its performance characteristics determined by [facility][1] Microbiology Laboratory. This test has been authorized [...] Provider Unknown LAB - MICROBIOLOGY O RDERABLES [facility] MICROBIOLOGY [address] [place] [address], [facility] [phone] documented in this encounter Visit Diagnoses Diagnosis Cough documented in this encounter Additional Health Concerns Infection Onset Date Last Indicated Resolved Time COVID-19 Under Investigation 01/28/2020 01/28/2020 01/29/2020 2:27 PM CDT documented as of this encounter Care Teams Tourist Information Assistant Relationship Specialty Start Date End Date Phani Choe MD [address] [place] [address] PCP - General Pediatrics 11/22/16 02/10/20 Phani Choe MD [address] [address] PCP - General 02/11/20 Phani Choe MD [address] [address] Pediatrics 02/11/20 documented as of this encounter
--- OUTSIDE RECORDS SUMMARY | 2024-10-15 17:06 | XMS_ITS ---
Care Plan - [facility] Created on: October 15, 2024 KALEB ROSE : 2005 Sex: Female Author Organization [facility] Address [address] [place] [address] Phone Care Team Providers Care Brain Wave Technician Name Role Phone AMANDA TAYLOR, MARIO Primary Care Provider [phone] AMANDA Helms, GIANA [facility] [phone]
--- OUTSIDE RECORDS SUMMARY | 2024-10-15 17:15 | XMS_ITS | Clinical Summary ---
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 Active Last Documented On 9 1:29PM ; [facility] Anxiety Disorder Nos 01/02/2019 GIANA PATEL M.D. Active Last Documented On 9 10:26AM ; [facility] Depression 01/02/2019 GIANA PATEL M.D. Acti ve Last Documented On 9 10:26AM ; [facility] Plan of Treatment No Plan of [...] 10/24/2023 2:28PM By MARIO PATEL MD ; [facility] Carvedilol 12.5 MG Oral Tablet 09/08/2023 Provider: GIANA PATEL M.D. Diagnosis: Essential (prima ry) hypertension One tablet twice a day Last Documented On 09/08/2023 2:57PM By MARIO PATEL MD ; [facility] Medications Administered Includes: Administered [...] Location Service Date ELECTROCARDIAGRAM READING FEE (EKG) 88131 Palpitations YOANA BRAVO MD [facility] 11/15/2023 Last Documented On 4 2:44PM ; [facility] ELECTROCARDIOGRAM TRACING 14168 Palpitations YOANA BRAVO MD [facility] 11/15/2023 Last Documented On 4 2:44PM ; [facility] Medical History Includes: Medical History addressed during [...] Diagnosis HEART CENTER CHECK UP NIYAH PARKER [facility]- 4 10:06AM 10:49AM Insurance Includes: Active Insurance Policies Plan Name Member ID Group # Subscriber Relationship Effect brenton Dates - [facility] [id number] ANGELICA PARTIDA Child Clinical Notes Includes: Clinical Notes from this encounter No Clinical Notes Recorded
--- OUTSIDE RECORDS SUMMARY | 2024-10-15 17:15 | XMS_ITS | Clinical Summary ---
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 Active Last Documented On 9 1:29PM ; [facility] Anxiety Disorder Nos 01/02/2019 GIANA PATEL M.D. Active Last Documented On 9 10:26AM ; [facility] Depression 01/02/2019 GIANA PATEL M.D. Acti ve Last Documented On 9 10:26AM ; [facility] Plan of Treatment No Plan of Treatment [...] 10/24/2023 2:28PM By MARIO PATEL MD ; [facility] Carvedilol 12.5 MG Oral Tablet 09/08/2023 Provider: GIANA PATEL M.D. Diagnosis: Essential (prima ry) hypertension One tablet twice a day Last Documented On 09/08/2023 2:57PM By MARIO PATEL MD ; [facility] Medications Administered Includes: Administered [...] Subscriber Relationship Effect brenton Dates 1 - [facility] [id number] ANGELICA PARTIDA Child Clinical Notes Includes: Clinical Notes from this encounter No Clinical Notes Recorded
--- OUTSIDE RECORDS SUMMARY | 2024-10-15 17:15 | XMS_ITS | Clinical Summary ---
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 Active Last Documented On 9 1:29PM ; [facility] Anxiety Disorder Nos 01/02/2019 GIANA PATEL M.D. Active Last Documented On 9 10:26AM ; [facility] Depression 01/02/2019 GIANA PATEL M.D. Acti ve Last Documented On 9 10:26AM ; [facility] Plan of Treatment No Plan of Treatment [...] 10/24/2023 2:28PM By MARIO PATEL MD ; [facility] Carvedilol 12.5 MG Oral Tablet 09/08/2023 Provider: GIANA PATEL M.D. Diagnosis: Essential (prima ry) hypertension One tablet twice a day Last Documented On 09/08/2023 2:57PM By MARIO PATEL MD ; [facility] Medications Administered Includes: [...] # Subscriber Relationship Effect brenton Dates - [facility] [id number] ANGELICA PARTIDA Child Clinical Notes Includes: Clinical Notes from this encounter No Clinical Notes Recorded
--- OUTSIDE RECORDS SUMMARY | 2024-10-15 17:16 | XMS_ITS | Clinical Summary ---
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 Active Last Documented On 9 1:29PM ; [facility] Anxiety Disorder Nos 01/02/2019 GIANA PATEL M.D. Active Last Documented On 9 10:26AM ; [facility] Depression 01/02/2019 GIANA PATEL M.D. Acti ve Last Documented On 9 10:26AM ; [facility] Plan of Treatment No Plan of Treatment [...] 10/24/2023 2:28PM By MARIO PATEL MD ; [facility] Carvedilol 12.5 MG Oral Tablet 09/08/2023 Provider: GIANA PATEL M.D. Diagnosis: Essential (prima ry) hypertension One tablet twice a day Last Documented On 09/08/2023 2:57PM By MARIO PATEL MD ; [facility] Medications Administered Includes: Administered [...] Subscriber Relationship Effect brenton Dates 1 - [facility] [id number] ANGELICA PARTIDA Child Clinical Notes Includes: Clinical Notes from this encounter No Clinical Notes Recorded
--- OUTSIDE RECORDS SUMMARY | 2024-10-15 17:16 | XMS_ITS ---
Author Organization [facility] Address [address] [place] [address] Phone Care Team Providers Care Health Care Technician Name Role Phone AMANDA TAYLOR, MARIO Primary Care Provider [phone] AMANDA Helms, GIANA Faulkner [phone] Problems Includes: Active, inactive, and resolved Problems All Visits Onset Date Resolved Date Provider Condition S tatus Vasovagal Syncope 07/30/2019 GIANA PTAEL M.D. 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 Active Last Documented On 9 1:29PM ; [facility] Anxiety Disorder Nos 01/02/2019 GIANA PATEL M.D. Active Last Documented On 9 10:26AM ; [facility] Depression 01/02/2019 GIANA PATEL M.D. Acti ve Last Documented On 9 10:26AM ; [facility] Plan of Treatment Findings Encounter Date Continue current medication CHECK UP with VERN PATEL M.D. 09/22/2023 Last Documented On 4 3:25PM ; [facility] Monitor Blood Pressure at home CHECK UP with MARIO PATEL M.D. 09/22/2023 Last Documented On 4 3:25PM ; [facility] Ordered patient to call if p giles develops CHECK UP with GIANA PATEL M.D. 09/22/2023 Last Documented On 4 3:25PM ; [facility] Ordered return to the clinic if condition worsens or new symptoms arise CHECK UP with GIANA PATEL M.D. 09/22/2023 Last Documented On 4 3:25PM ; [facility] Continue current medication PROBLEM VISIT with Brooklynn PATEL M.D. 09/08/2023 Last Documented On 4 2:44PM ; [facility] Monitor Blood Pressure at home PROBLEM VISIT wit h GIANA PATEL M.D. 09/08/2023 Last Documented On 4 2:44PM ; [facility] Ordered patient to call if p rajlem develops PROBLEM VISIT with GIANA PATEL M.D. 09/08/2023 Last Documented On 4 2:44PM ; [facility] Ordered return to the clinic if condition worsens or new symptoms arise PROBLEM VISIT with GIANA PATEL M.D. 09/08/2023 Last Documented On 4 2:44PM ; [facility] Plan - start medication PROBLEM VISIT with LUANN PATEL M.D. 09/08/2023 Last Documented On 4 2:44PM ; [facility] Ordered Clinical summary pro vided to patient WELL WOMAN - ESTABLISHED PT with CELIA COVINGTON RN [facility] 08/03/2023 Last Documented On 3 10:53AM ; [facility] Ordered patient to call if p rajlem develops CHECK UP with GIANA PATEL M.D. 06/06/2023 Last Documented On 3 4:47PM ; [facility] Ordered return to the clinic if condition worsens or new symptoms arise CHECK UP with GIANA PATEL M.D. 06/06/2023 Last Documented On 3 4:47PM ; [facility] Plan - start medication CHECK UP with GIANA PATEL M.D. 06/06/2023 Last Documented On 3 4:47PM ; [facility] Ordered Clinical summary pro vided to patient WELL WOMAN - ESTABLISHED PT with CELIA COVINGTON RN [facility] 08/02/2022 Last Documented On 2 10:25AM ; [facility] Ordered Clinical summary pro vided to patient WELL WOMAN - ESTABLISHED PT with CELIA COVINGTON RN [facility] 07/28/2021 Last Documented On 1 8:44AM ; [facility] Ordered patient will call fo r appointment as needed SICK VISIT with JUSTICE SMALLS [facility] 09/23/2020 Last Documented On 1 10:31AM ; [facility] Ordered return to the clinic if condition worsens or new symptoms arise SICK VISIT with JUSTICE SMALLS [facility] 09/23/2020 Last Documented On 1 10:31AM ; [facility] Ordered Clinical summary pro vided to patient ANNUAL WELL WOMEN EXAM with CELIA COVINGTON RN [facility] 07/17/2020 Last Documented On 0 2:26PM ; [facility] Continue current medication 1 MONTH CHECK with Brooklynn PATEL M.D. 05/29/2020 Last Documented On 0 4:14PM ; [facility] Ordered patient to call if p roblem develops 1 MONTH CHECK with GIANA PATEL M.D. 05/29/2020 Last Documented On 0 4:14PM ; [facility] Ordered return to the clinic if condition worsens or new symptoms arise 1 MONTH CHECK with GIANA PATEL M.D. 05/29/2020 Last Documented On 0 4:14PM ; [facility] Ordered patient will call fo r appointment as needed SICK VISIT with JUSTICE SMALLS [facility] 05/15/2020 Last Documented On 0 7:47PM ; [facility] Ordered return to the clinic if condition worsens or new symptoms arise SICK VISIT with JUSTICE SMALLS [facility] 05/15/2020 Last Documented On 0 7:47PM ; [facility] Ordered patient to call if p roblem develops GENERAL OFFICE VISIT with GIANA PATEL M.D. 04/22/2020 Last Documented On 0 9:40AM ; [facility] Ordered return to the clinic if condition worsens or new symptoms arise GENERAL OFFICE VISIT with GIANA PATEL M.D. 04/22/2020 Last Documented On 0 9:40AM ; [facility] Plan - start medication GENERAL OFFICE VISIT wit donaldo GIANA PATEL M.D. 04/22/2020 Last Documented On 0 9:40AM ; [facility] Acetaminophen alternating wi th Motrin Patient may take alternating Tylenol or Ibuprofen every 4 to 6 hours as needed for fever and pain MED CHECK with GIANA PATEL M.D. 10/16/2019 Last Documented On 0 5:22PM ; [facility] Ordered patient to call if yasmani dotym develops MED CHECK with GIANA PATEL M.D. 10/16/2019 Last Documented On 0 5:22PM ; [facility] Ordered return to the clinic if condition worsens or new symptoms arise MED CHECK with GIANA PATEL M.D. 10/16/2019 Last Documented On 0 5:22PM ; [facility] Plan - start medication MED CHECK with GIANA PATEL M.D. 10/16/2019 Last Documented On 0 5:22PM ; [facility] Supportive care was advised. Symptomatic therapy for symptoms. Can use over the counter cough or cold medicine and tylenol as needed MED CHECK with GIANA PATEL M.D. 10/16/2019 Last Documented On 0 5:22PM ; [facility] Ordered patient to call if p rajlem develops 3 MONTH CHECK with GIANA PATEL M.D. 06/12/2019 Last Documented On 9 4:55PM ; [facility] Ordered return to the clinic if condition worsens or new symptoms arise 3 MONTH CHECK with GIANA PATEL M.D. 06/12/2019 Last Documented On 9 4:55PM ; [facility] Plan - start medication 3 MONTH CHECK with LUANN PATEL M.D. 06/12/2019 Last Documented On 9 4:55PM ; [facility] Continue current medication citalopram at 40 mg a day 1 MONTH CHECK with GIANA PATEL M.D. 03/15/2019 Last Documented On 9 11:38AM ; [facility] Modify drug dosage adderall XR to 30 mg a day 1 MONTH CHECK with GIANA PATEL M.D. 03/15/2019 Last Documented On 9 11:38AM ; [facility] Ordered patient to call if p roblem develops 1 MONTH CHECK with GIANA PATEL M.D. 03/15/2019 Last Documented On 9 11:38AM ; [facility] Ordered return to the clinic if condition worsens or new symptoms arise 1 MONTH CHECK with GIANA PATEL M.D. 03/15/2019 Last Documented On 9 11:38AM ; [facility] Plan - start medication well butrin at 100 mg 2 x a day 1 MONTH CHECK with GIANA PATEL M.D. 03/15/2019 Last Documented On 9 11:38AM ; [facility] Ordered Clinical summary pro vided to patient NEW 3D SPECIALIST EXAM with CELIA COVINGTON RN [facility] 02/19/2019 Last Documented On 9 1:55PM ; [facility] Continue current medication 2 WK CK-UP with SREE PATEL M.D. 01/16/2019 Last Documented On 9 1:31PM ; [facility] Modify drug dosage adderall to XR 20 mg in am 2 WK CK-UP with GIANA PATEL M.D. 01/16/2019 Last Documented On 9 1:31PM ; [facility] Ordered patient to call if p roblem develops 2 WK CK-UP with GIANA PATEL M.D. 01/16/2019 Last Documented On 9 1:31PM ; [facility] Ordered return to the clinic if condition worsens or new symptoms arise 2 WK CK-UP with GIANA PATEL M.D. 01/16/2019 Last Documented On 9 1:31PM ; [facility] Modify drug dosage Citalopram to 40 mg 2 WK CK-UP with GIANA Torres.Anabelle 01/02/2019 Last Documented On 9 10:30AM ; [facility] Ordered patient to call if p roblem develops 2 WK CK-UP with GIANA Andrew PATEL M.D. 01/02/2019 Last Documented On 9 10:30AM ; [facility] Ordered return to the clinic if condition worsens or new symptoms arise 2 WK CK-UP with GIANA Torres.Anabelle 01/02/2019 Last Documented On 9 10:30AM ; [facility] Plan - start medication adderall 2 WK CK-UP with GIANA Torres.Anabelle 01/02/2019 Last Documented On 9 10:30AM ; [facility] Ordered patient to call if p roblem develops NEW PATIENT VISIT with GIANA Torres.Anabelle 12/19/2018 Last Documented On 9 4:25PM ; [facility] Ordered return to the clinic if condition worsens or new symptoms arise NEW PATIENT VISIT with GIANA PATEL M.Anabelle 12/19/2018 Last Documented On 9 4:25PM ; [facility] Plan - start medication NEW PATIENT VISIT with Brooklynn Torres.Anabelle 12/19/2018 Last Documented On 9 4:25PM ; [facility] Ordered return to the clinic if condition worsens or new symptoms arise WALK-IN CLINIC SICK VISIT with ANNY GILLESPIE-Arleen 05/13/2018 Last Documented On 8 1:20PM ; [facility] Ordered Transition in care, clinical summary provided WALK-IN CLINIC SICK VISIT with ANNY GILLESPIE-Arleen 05/13/2018 Last Documented On 8 1:20PM ; [facility] Ordered referred to primary care physician WALK-IN CLINIC SICK VISIT with JUSTICE SMALLS [facility]- 04/11/2018 Last Documented On 8 3:05PM ; [facility] Ordered Transition in care, clinical summary provided WALK-IN CLINIC SICK VISIT with JUSTICE SMALLS [facility]- 04/11/2018 Last Documented On 8 3:05PM ; [facility] Pt to use prescription as or dered. Purpose of and use of medication discussed. WALK-IN CLINIC SICK VISIT with VIJAY NASH 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 Ok to see Ortho/Dr Clark per LSD. Last Documented On 1 7:04PM ; [facility] Sap [employer] [facility] [address] [address] - Essential (primary) hypertension Note: Stanton Dx Palpitation s Last Documented On 4 9:27AM ; [facility] Instructions to patient Instructions for patient : B reast Self Exam discussed and technique reviewed Last Documented On 3 10:39AM ; [facility] Use a condom during sexual i ntercourse Last Documented On 3 10:39AM ; [facility] Instructed to call if excess brenton bleeding or abdominal/pelvic pain Last Documented On 3 10:39AM ; [facility] Recommend diet and exercise at least 30 min three times per week Last Documented On 3 10:39AM ; [facility] Instructions for patient : B reast Self Exam discussed and technique reviewed Last Documented On 2 9:57AM ; [facility] Use a condom during sexual i ntercourse Last Documented On 2 9:57AM ; [facility] Instructed to call if excess brenton bleeding or abdominal/pelvic pain Last Documented On 2 9:57AM ; [facility] Recommend diet and exercise at least 30 min three times per week Last Documented On 2 9:57AM ; [facility] Instructions for patient : B reast Self Exam discussed and technique reviewed Last Documented On 1 8:40AM ; [facility] Use a condom during sexual i ntercourse Last Documented On 1 8:40AM ; [facility] Instructed to call if excess brenton bleeding or abdominal/pelvic pain Last Documented On 1 8:40AM ; [facility] Recommend diet and exercise at least 30 min three times per week Last Documented On 1 8:40AM ; [facility] Instructions for patient Last Documented On 1 10:21AM ; [facility] Instructions for patient : B reast Self Exam discussed and technique reviewed Last Documented On 0 1:05PM ; [facility] Instructed to call if excess brenton bleeding or abdominal/pelvic pain Last Documented On 0 1:05PM ; [facility] Recommend diet and exercise at least 30 min three times per week Last Documented On 0 1:05PM ; [facility] Instructions for patient Last Documented On 0 7:44PM ; [facility] Instructions for patient : B reast Self Exam discussed and technique reviewed Last Documented On 9 1:18PM ; [facility] Instructed to call if excess brenton bleeding or abdominal/pelvic pain Last Documented On 9 1:18PM ; [facility] Recommend diet and exercise at least 30 min three times per week Last Documented On 9 1:18PM ; [facility] Go to the emergency room if condition worsens Last Documented On 8 1:19PM ; [facility] Maintain a healthy diet Last Documented On 8 3:04PM ; [facility] No Special Instructions or D evices Last Documented On 8 3:04PM ; [facility] Education and Decision Aids were provided during visit for: Patient education RE: abbey g signals associated with hormonal contraceptive use including abdominal, chest, or leg pain, headaches or visual disturbances Last Documented On 3 10:39AM ; [facility] Patient Education: Daily alexis cium and vitamin D Last Documented On 3 10:39AM ; [facility] Patient education : Last Documented On 3 8:36AM ; [facility] Inquiry and counseling about contraceptive practices Last Documented On 3 8:33AM ; [facility] Patient education RE: kiannan g signals associated with hormonal contraceptive use including abdominal, chest, or leg pain, headaches or visual disturbances Last Documented On 2 9:57AM ; [facility] Patient Education: Daily alexis cium and vitamin D Last Documented On 2 9:57AM ; [facility] Patient education RE: kiannan g signals associated with hormonal contraceptive use including abdominal, chest, or leg pain, headaches or visual disturbances Last Documented On 1 8:40AM ; [facility] Patient Education: Daily alexis cium and vitamin D Last Documented On 1 8:40AM ; [facility] Discussed smoking and drug u se Last Documented On 0 1:05PM ; [facility] Discussed risk-taking behavi or Last Documented On 0 1:05PM ; [facility] Patient education RE: kiannan g signals associated with hormonal contraceptive use including abdominal, chest, or leg pain, headaches or visual disturbances Last Documented On 0 1:05PM ; [facility] Patient Education: Daily alexis cium and vitamin D Last Documented On 0 1:05PM ; [facility] Patient counseling : Use of contraceptives discussed in detail including rare occurrence of heart attack, stroke, and leg clots. Patient understands that smoking increases the risk of serious side effects with any steroid-based contraceptive method Last Documented On 9 9:27AM ; [facility] control consent review ed and signed Last Documented On 9 9:29AM ; [facility] Discussed smoking and drug u se Last Documented On 9 1:18PM ; [facility] Patient education RE: kiannan g signals associated with hormonal contraceptive use including abdominal, chest, or leg pain, headaches or visual disturbances Last Documented On 9 1:18PM ; [facility] Patient Education: Daily alexis cium and vitamin D Last Documented On 9 1:18PM ; [facility] control consent review ed and signed Last Documented On 9 1:18PM ; [facility] Patient education about anti biotics: need to finish even if feeling better Last Documented On 8 1:19PM ; [facility] Discussed use of seat belts Last Documented On 8 3:04PM ; [facility] Discussed bicycle safety Last Documented On 8 3:04PM ; [facility] Discussed sports safety Last Documented On 8 3:04PM ; [facility] Discussed concerns about tel evision : limit time spent watching Last Documented On 8 3:04PM ; [facility] Assessments Includes: Assessments for all patient encounters Findings Encounter Date Anxiety disorder NOS CHECK UP with GIANA SORIA ON M.D. 09/22/2023 Last Documented On 4 3:25PM ; [facility] Attention deficit disorder w ithout hyperactivity, predominantly inattentive type CHECK UP with GIANA PATEL M.DDru 09/22/2023 Last Documented On 4 3:25PM ; [facility] Depression CHECK UP with GIANA PATEL M. DDru 09/22/2023 Last Documented On 4 3:25PM ; [facility] Essential hypertension CHECK UP with GIANA CHRIS MRaul 09/22/2023 Last Documented On 4 3:25PM ; [facility] Anxiety disorder NOS PROBLEM VISIT with GIANA PATEL M.DDru 09/08/2023 Last Documented On 4 2:44PM ; [facility] Attention deficit disorder w ithout hyperactivity, predominantly inattentive type PROBLEM VISIT with GIANA PATEL M.DDru 09/08/2023 Last Documented On 4 2:44PM ; [facility] Depression PROBLEM VISIT with GIANA SORIA ON M.D. 09/08/2023 Last Documented On 4 2:44PM ; [facility] Essential hypertension PROBLEM VISIT with VERN PATEL MDruDDru 09/08/2023 Last Documented On 4 2:44PM ; [facility] NORMAL FEMALE EXAM WELL WOMAN - ESTABLI SHED PT with CELIA COVINGTON RN [facility] 08/03/2023 Last Documented On 3 10:53AM ; [facility] Anxiety disorder NOS CHECK UP with GIANA S DIZ ON M.D. 06/06/2023 Last Documented On 3 4:47PM ; [facility] Attention deficit disorder w ithout hyperactivity, predominantly inattentive type CHECK UP with GIANA S AMANDA M.D. 06/06/2023 Last Documented On 3 4:47PM ; [facility] Depression CHECK UP with GIANA S AMANDA M. D. 06/06/2023 Last Documented On 3 4:47PM ; [facility] Patient is approved for part icipation in School, Physical Education, and Sports for 1 year CHECK UP with GIANA S AMANDA M.D. 04/21/2023 Last Documented On 3 3:03PM ; [facility] Anxiety disorder NOS CHECK UP with GIANA S NICOLEZ ON M.D. 04/21/2023 Last Documented On 3 3:03PM ; [facility] Attention deficit disorder w ithout hyperactivity, predominantly inattentive type CHECK UP with GIANA S AMANDA M.D. 04/21/2023 Last Documented On 3 3:03PM ; [facility] Depression CHECK UP with GIANA S AMANDA M. D. 04/21/2023 Last Documented On 3 3:03PM ; [facility] Routine history and physical CHECK UP with LEONC IO S AMANDA M.Anabelle 04/21/2023 Last Documented On 3 3:03PM ; [facility] Contraceptive management WH CONSULTATION - ESTABLISHED PATIENT with CELIA COVINGTON RN CHRISTINE 11/10/2022 Last Documented On 3 8:39AM ; [facility] NORMAL FEMALE EXAM WELL WOMAN - ESTABLI SHED PT with CELIA COVINGTON RN CHRISTINE 08/02/2022 Last Documented On 2 10:25AM ; [facility] Contraceptive management INJECTION with CELIA COVINGTON RN CHRISTINE 10/15/2021 Last Documented On 2 3:52PM ; [facility] NORMAL FEMALE EXAM WELL WOMAN - ESTABLI SHED PT with CELIA COVINGTON RN CHRISTINE 07/28/2021 Last Documented On 1 8:44AM ; [facility] Patient is approved for participation in School, Physical Education, and Sports for 1 year EMERGENCY ROOM FOLLOWUP-ESTABLISHED PT with GIANA S AMANDA M.D. 12/08/2020 Last Documented On 1 1:36PM ; [facility] Routine adolescent history a nd physical (12 - 17 yrs) EMERGENCY ROOM FOLLOWUP-ESTABLISHED PT with GIANA S AMANDA M.D. 12/08/2020 Last Documented On 1 1:36PM ; [facility] Acute upper respiratory infection SICK VISIT wit donaldo SMALLS [facility]- 09/23/2020 Last Documented On 1 10:31AM ; [facility] NORMAL FEMALE EXAM ANNUAL WELL WOMEN EXAM with Arleen COVINGTON RN [facility] 07/17/2020 Last Documented On 0 2:26PM ; [facility] Anxiety disorder NOS 1 MONTH CHECK with GIANA S AMANDA M.D. 05/29/2020 Last Documented On 0 4:14PM ; [facility] Attention deficit disorder w [facility] hyperactivity, predominantly inattentive type 1 MONTH CHECK with GIANA S AMANDA M.D. 05/29/2020 Last Documented On 0 4:14PM ; [facility] Depression 1 MONTH CHECK with GIANA S NICOLEZ ON M.D. 05/29/2020 Last Documented On 0 4:14PM ; [facility] Acute pharyngitis SICK VISIT with ANDREA PEARL [facility] 05/21/2020 Last Documented On 0 12:24PM ; [facility] Aphthous ulcer SICK VISIT with ANDREA AUSTIN [facility] 05/21/2020 Last Documented On 0 12:24PM ; [facility] Acute upper respiratory infection SICK VISIT wit donaldo SMALLS [facility]- 05/15/2020 Last Documented On 0 7:47PM ; [facility] Anxiety disorder NOS GENERAL OFFICE VISIT with Brooklynn PATEL M.D. 04/22/2020 Last Documented On 0 9:40AM ; [facility] Attention deficit disorder w ithout hyperactivity, predominantly inattentive type GENERAL OFFICE VISIT with GIANA S AMANDA M.D. 04/22/2020 Last Documented On 0 9:40AM ; [facility] Depression GENERAL OFFICE VISIT with LEONCI O S AMANDA M.D. 04/22/2020 Last Documented On 0 9:40AM ; [facility] Routine adolescent history a nd physical (12-17 yrs) with abnormal findings GENERAL OFFICE VISIT with GIANA S AMANDA M.D. 04/22/2020 Last Documented On 0 9:40AM ; [facility] Anxiety disorder NOS MED CHECK with GIANA S DI ZON M.D. 10/16/2019 Last Documented On 0 5:22PM ; [facility] Attention deficit disorder w ithout hyperactivity, predominantly inattentive type MED CHECK with GIANA S AMANDA M.D. 10/16/2019 Last Documented On 0 5:22PM ; [facility] Depression MED CHECK with GIANA S AMANDA M .D. 10/16/2019 Last Documented On 0 5:22PM ; [facility] Right deltoid muscle strain MED CHECK with LEONC IO S AMANDA M.D. 10/16/2019 Last Documented On 0 5:22PM ; [facility] Upper respiratory infection MED CHECK with LEONC IO S AMANDA M.D. 10/16/2019 Last Documented On 0 5:22PM ; [facility] Vasovagal syncope DEPO INJECTION with CELIA GOMEZ RN [facility] 07/30/2019 Last Documented On 9 10:24AM ; [facility] Encounter for contraceptive surveillance, unspecified CONSULTATION with CELIA COVINGTON RN [facility] 07/23/2019 Last Documented On 9 9:33AM ; [facility] Anxiety disorder NOS 3 MONTH CHECK with GIANA S AMANDA M.D. 06/12/2019 Last Documented On 9 4:55PM ; [facility] Attention deficit disorder w ithout hyperactivity, predominantly inattentive type 3 MONTH CHECK with GIANA S AMANDA M.D. 06/12/2019 Last Documented On 9 4:55PM ; [facility] Depression 3 MONTH CHECK with GIANA S DIZ ON M.D. 06/12/2019 Last Documented On 9 4:55PM ; [facility] Anxiety disorder NOS 1 MONTH CHECK with GIANA S AMANDA M.D. 03/15/2019 Last Documented On 9 11:38AM ; [facility] Attention deficit disorder w ithout hyperactivity, predominantly inattentive type 1 MONTH CHECK with GIANA S AMANDA M.D. 03/15/2019 Last Documented On 9 11:38AM ; [facility] Depression 1 MONTH CHECK with GIANA S DIZ ON M.D. 03/15/2019 Last Documented On 9 11:38AM ; [facility] NORMAL FEMALE EXAM NEW 3D SPECIALIST EXAM with CELIA CASTILLO RN [facility] 02/19/2019 Last Documented On 9 1:55PM ; [facility] Anxiety disorder NOS 2 WK CK-UP with GIANA S D IZON M.D. 01/16/2019 Last Documented On 9 1:31PM ; [facility] Attention deficit disorder w ithout hyperactivity, predominantly inattentive type 2 WK CK-UP with GIANA S AMANDA M.D. 01/16/2019 Last Documented On 9 1:31PM ; [facility] Depression 2 WK CK-UP with GIANA S AMANDA M.D. 01/16/2019 Last Documented On 9 1:31PM ; [facility] ADHD, predominantly inattentive type 2 WK CK-UP with GIANA S AMANDA M.D. 01/02/2019 Last Documented On 9 10:30AM ; [facility] Anxiety disorder NOS 2 WK CK-UP with GIANA S D IZON M.D. 01/02/2019 Last Documented On 9 10:30AM ; [facility] Depression 2 WK CK-UP with GIANA S AMANDA M.D. 01/02/2019 Last Documented On 9 10:30AM ; [facility] Anxiety disorder NOS NEW PATIENT VISIT with SREE SANDSTONE INSPECTOR REPAIRER S AMANDA M.D. 12/19/2018 Last Documented On 9 4:25PM ; [facility] Depression NEW PATIENT VISIT with GIANA PATEL M.D. 12/19/2018 Last Documented On 9 4:25PM ; [facility] Otitis media of the left ear WALK-IN CLI ABDIAZIZ SICK VISIT with ANDREA MOYA [facility]-C 12/05/2018 Last Documented On 9 11:19AM ; [facility] Patient is approved for part icipation in School, Physical Education, and Sports for 1 year WALK-IN CLINIC SICK VISIT with JUSTICE SMALLS [facility]-BC 04/11/2018 Last Documented On 8 3:05PM ; [facility] Routine adolescent history a nd physical (12 - 17 yrs) WALK-IN CLINIC SICK VISIT with JUSTICE SMALLS GREENSMAN-BC 04/11/2018 Last Documented On 8 3:05PM ; [facility] Instructions Includes: Instructions for all patient encounters Instructions to patient Instructions for patient : B reast Self Exam discussed and technique reviewed Last Documented On 3 10:39AM ; [facility] Use a condom during sexual i ntercourse Last Documented On 3 10:39AM ; [facility] Instructed to call if excess brenton bleeding or abdominal/pelvic pain Last Documented On 3 10:39AM ; [facility] Recommend diet and exercise at least 30 min three times per week Last Documented On 3 10:39AM ; [facility] Instructions for patient : B reast Self Exam discussed and technique reviewed Last Documented On 2 9:57AM ; [facility] Use a condom during sexual i ntercourse Last Documented On 2 9:57AM ; [facility] Instructed to call if excess brenton bleeding or abdominal/pelvic pain Last Documented On 2 9:57AM ; [facility] Recommend diet and exercise at least 30 min three times per week Last Documented On 2 9:57AM ; [facility] Instructions for patient : B reast Self Exam discussed and technique reviewed Last Documented On 1 8:40AM ; [facility] Use a condom during sexual i ntercourse Last Documented On 1 8:40AM ; [facility] Instructed to call if excess brenton bleeding or abdominal/pelvic pain Last Documented On 1 8:40AM ; [facility] Recommend diet and exercise at least 30 min three times per week Last Documented On 1 8:40AM ; [facility] Instructions for patient Last Documented On 1 10:21AM ; [facility] Instructions for patient : B reast Self Exam discussed and technique reviewed Last Documented On 0 1:05PM ; [facility] Instructed to call if excess brenton bleeding or abdominal/pelvic pain Last Documented On 0 1:05PM ; [facility] Recommend diet and exercise at least 30 min three times per week Last Documented On 0 1:05PM ; [facility] Instructions for patient Last Documented On 0 7:44PM ; [facility] Instructions for patient : B reast Self Exam discussed and technique reviewed Last Documented On 9 1:18PM ; [facility] Instructed to call if excess brenton bleeding or abdominal/pelvic pain Last Documented On 9 1:18PM ; [facility] Recommend diet and exercise at least 30 min three times per week Last Documented On 9 1:18PM ; [facility] Go to the emergency room if condition worsens Last Documented On 8 1:19PM ; [facility] Maintain a healthy diet Last Documented On 8 3:04PM ; [facility] No Special Instructions or D evices Last Documented On 8 3:04PM ; [facility] Education and Decision Aids were provided during visit for: Patient education RE: abbey batista signals associated with hormonal contraceptive use including abdominal, chest, or leg pain, headaches or visual disturbances Last Documented On 3 10:39AM ; [facility] Patient Education: Daily alexis cium and vitamin D Last Documented On 3 10:39AM ; [facility] Patient education : Last Documented On 3 8:36AM ; [facility] Inquiry and counseling about contraceptive practices Last Documented On 3 8:33AM ; [facility] Patient education RE: abbey batista signals associated with hormonal contraceptive use including abdominal, chest, or leg pain, headaches or visual disturbances Last Documented On 2 9:57AM ; [facility] Patient Education: Daily alexis cium and vitamin D Last Documented On 2 9:57AM ; [facility] Patient education RE: kiannan g signals associated with hormonal contraceptive use including abdominal, chest, or leg pain, headaches or visual disturbances Last Documented On 1 8:40AM ; [facility] Patient Education: Daily alexis cium and vitamin D Last Documented On 1 8:40AM ; [facility] Discussed smoking and drug u se Last Documented On 0 1:05PM ; [facility] Discussed risk-taking behavi or Last Documented On 0 1:05PM ; [facility] Patient education RE: kiannan g signals associated with hormonal contraceptive use including abdominal, chest, or leg pain, headaches or visual disturbances Last Documented On 0 1:05PM ; [facility] Patient Education: Daily alexis cium and vitamin D Last Documented On 0 1:05PM ; [facility] Patient counseling : Use of contraceptives discussed in detail including rare occurrence of heart attack, stroke, and leg clots. Patient understands that smoking increases the risk of serious side effects with any steroid-based contraceptive method Last Documented On 9 9:27AM ; [facility] control consent review ed and signed Last Documented On 9 9:29AM ; [facility] Discussed smoking and drug u se Last Documented On 9 1:18PM ; [facility] Patient education RE: kiannan g signals associated with hormonal contraceptive use including abdominal, chest, or leg pain, headaches or visual disturbances Last Documented On 9 1:18PM ; [facility] Patient Education: Daily alexis cium and vitamin D Last Documented On 9 1:18PM ; [facility] control consent review ed and signed Last Documented On 9 1:18PM ; [facility] Patient education about anti biotics: need to finish even if feeling better Last Documented On 8 1:19PM ; [facility] Discussed use of seat belts Last Documented On 8 3:04PM ; [facility] Discussed bicycle safety Last Documented On 8 3:04PM ; [facility] Discussed sports safety Last Documented On 8 3:04PM ; [facility] Discussed concerns about tel evision : limit time spent watching Last Documented On 8 3:04PM ; [facility] Medical Equipment - Implanted Devices Includes: Current and historical Devices No Medical Equipment Recorded Medications Includes: Current and historical Medications Current Medications (continue as prescribed) Methylphenidate HCl ER 10 MG Oral Tablet Extended Release 10/24/2023 Provider: GIANA CHRIS M.D. Diagnosis: Attn-defct hyper activity disorder, predom inattentive type One tablet daily Last Documented On 10/24/2023 2:28PM By MARIO PATEL MD ; [facility] Carvedilol 12.5 MG Oral Tablet 09/08/2023 Provider: GIANA PATEL M.D. Diagnosis: Essential (prima ry) hypertension One tablet twice a day Last Documented On 09/08/2023 2:57PM By MARIO PATEL MD ; [facility] Past Medications on file Methylphenidate HCl ER 10 MG Oral Tablet Extended Release 09/08/2023 - 10/24/2023 Provider: GIANA PATEL M.D. Diagnosis: Attn-defct hyperactivity disorder, predom inattentive type One tablet daily Last Documented On 10/24/2023 2:17PM By MARIO PATEL MD ; [facility] medroxyPROGESTERone Acetate 150 MG/ML Intramuscular Suspension Prefilled Syringe 08/03/2023 - 07/04/2024 Provider: CELIA COVINGTON RN [facility] Diagnosis: Encounter for surveillance of injectable contraceptive as directed Last Documented On 11:04AM By CELIA LAMB- ; [facility] Citalopram Hydrobromide 20 MG Oral Tablet 07/13/2023 - 09/08/2023 Provider: GIANA PATEL M.D. Diagnosis: Major depressive disorder, single episode, unspecified One tablet dailyNeed Office Visit. Last Documented On 09/08/2023 2:35PM By MARIO PATEL MD ; [facility] Methylphenidate HCl ER 10 MG Oral Tablet Extended Release 07/13/2023 - 09/08/2023 Provider: GIANA PATEL M.D. Diagnosis: Attn-defct hyperactivity disorder, predom inattentive type One tablet dailyNeed Office Visit. Last Documented On 09/08/2023 2:43PM By MARIO PATEL MD ; [facility] medroxyPROGESTERone Acetate 150 MG/ML Intramuscular Suspension Prefilled Syringe 07/05/2023 - 08/03/2023 Provider: CELIA COVINGTON RN [facility] Diagnosis: Encounter for surveillance of injectable contraceptive as directed Last Documented On 10:51AM [facility] ; [facility] Citalopram Hydrobromide 20 MG Oral Tablet 06/06/2023 - 07/13/2023 Provider: GIANA PATEL M.D. Diagnosis: Major depressive disorder, single episode, unspecified One tablet daily Last Documented On 07/13/2023 11:17AM By MARIO PATEL MD ; [facility] Methylphenidate HCl ER 10 MG Oral Tablet Extended Release 06/06/2023 - 07/13/2023 Provider: GIANA PATEL M.D. Diagnosis: Attn-defct hyperactivity disorder, predom inattentive type One tablet daily Last Documented On 07/13/2023 11:17AM By MARIO PATEL MD ; [facility] Amphetamine-Dextroamphet ER 10 MG Oral Capsule Extended Release 24 Hour 04/21/2023 - 09/08/2023 Provider: GIANA PATEL M.D. Diagnosis: Attn-defct hyperactivity disorder, predom inattentive type 1 capsule daily Last Documented On 09/08/2023 2:35PM By MARIO PATEL MD ; [facility] medroxyPROGESTERone Acetate 150 MG/ML Intramuscular Suspension Prefilled Syringe 04/07/2023 - 07/05/2023 Provider: CELIA COVINGTON RN [facility] Diagnosis: Encounter for surveillance of injectable contraceptive as directed Last Documented On 3 8:34AM By CELIA BRAR ; [facility] medroxyPROGESTERone Acetate 150 MG/ML Intramuscular Suspension Prefilled Syringe 08/02/2022 - 04/07/2023 Provider: CELIA LAMB Diagnosis: Encounter for surveillance of injectable contraceptive as directed Last Documented On 9:26AM By CELIA BRAR ; [facility] Citalopram Hydrobromide 20 M G Oral Tablet 10/13/2021 - 08/02/2022 Provider: GIANA PATEL M.D. Diagnosis: One tablet dailyNeed Office Visit. Last Documented On 08/02/2022 9:36AM By Nissa William ; [facility] medroxyPROGESTERone Acetate 150 MG/ML Intramuscular Suspension Prefilled Syringe 07/28/2021 - 10/27/2022 Provider: CELIA LAMB Diagnosis: Irregular menstruation, unspecified as directed please dispense and RTC every 12 weeks for injection Last Documented On 10/27/2022 10:02AM By Nissa William ; [facility] medroxyPROGESTERone Acetate 150 MG/ML Intramuscular Suspension Prefilled Syringe 07/07/2021 - 07/28/2021 Provider: CELIA COVINGTON RN [facility] Diagnosis: Irregular menstruation, unspecified DISPENSE AND TAKE TO OFFICE no further refills without annual exam Last Documented On 8:40AM By CELIA BRAR ; [facility] Citalopram Hydrobromide 20 MG Oral Tablet 01/13/2021 - 07/28/2021 Provider: GIANA PATEL M.D. Diagnosis: Anxiety disorder , unspecified TAKE 1 TABLET BY MOUTH DAILY Last Documented On 07/28/2021 8:20AM By Nissa William ; [facility] Citalopram Hydrobromide 20 MG Oral Tablet 10/15/2020 - 01/13/2021 Provider: GIANA PATEL M.D. Diagnosis: Anxiety disorder , unspecified TAKE 1 TABLET BY MOUTH DAILY Need Office Visit. Last Documented On 01/13/2021 11:38AM By MARIO PATEL MD ; [facility] medroxyPROGESTERone Acetate 150 MG/ML Intramuscular Suspension 07/17/2020 - 07/07/2021 Provider: CELIA COVINGTON RN [facility] Diagnosis: Irregular menstruation, unspecified as directed DISPENSE AND PT TO RETURN TO OFfICE FOR ADMINISTRATION Last Documented On 7:48AM By CELIA COVINGTON [facility]- ; [facility] Citalopram Hydrobromide 20 MG Oral Tablet 05/29/2020 - 10/15/2020 Provider: GIANA PATEL M.D. Diagnosis: Anxiety disorder , unspecified One tablet daily Last Documented On 10/15/2020 9:02AM By MARIO PATEL MD ; [facility] Magic Mouthwash compounded Oral Suspension 05/21/2020 - 05/29/2020 Provider: ANDREA MOYA [facility]EN[facility]AN-C Diagnosis: Recurrent oral aphthae 5 ml swish and swallow x6h Last Documented On 05/29/2020 4:12PM By MARIO PATEL MD ; [facility] Cephalexin 500 MG Oral Capsule 05/19/2020 - 05/29/2020 Provider: JUSTICE SMALLS [facility] Diagnosis: Acute pharyngiti s, unspecified 1 CAPSULE TWO TIMES A DAY Last Documented On 05/29/2020 3:50PM By Lety Morelos [facility] ; [facility] Citalopram Hydrobromide 20 MG Oral Tablet 04/22/2020 - 05/29/2020 Provider: GIANA PATEL M.D. Diagnosis: Anxiety disorder , unspecified One tablet daily Last Documented On 05/29/2020 4:12PM By MARIO PATEL MD ; [facility] Naproxen 500 MG Oral Tablet 10/16/2019 - 04/22/2020 Provider: GIANA PATEL M.D. Diagnosis: Strain of musc/fasc/tend at shldr/up arm, right arm, init One tablet twice a day as needed Last Documented On 04/22/2020 4:52PM By MARIO PATEL MD ; [facility] Citalopram Hydrobromide 20 MG Oral Tablet 10/16/2019 - 04/22/2020 Provider: GIANA PATEL M.D. Diagnosis: Anxiety disorder , unspecified One tablet daily Last Documented On 04/22/2020 4:54PM By MARIO PATEL MD ; [facility] medroxyPROGESTERone Acetate 150 MG/ML Intramuscular Suspension 07/23/2019 - 07/17/2020 Provider: CELIA COVINGTON RN [facility] Diagnosis: Encounter for in itial prescription of other contraceptives as directed DISPENSE AND PT TO RETURN TO OFfICE FOR ADMINISTRATION Last Documented On 0 1:01PM By CELIA BRAR ; [facility] Ritalin 20 MG Oral Tablet 06/17/2019 - 10/16/2019 Prov ider: GIANA PATEL M.D. Diagnosis: 1 tab in am, 1 tab at noon Last Documented On 10/16/2019 5:18PM By MARIO PATEL MD ; [facility] Concerta 36 MG Oral Tablet Extended Release 06/12/2019 - 10/16/2019 Provider: GIANA PATEL M.D. Diagnosis: One tablet daily Last Documented On 10/16/2019 5:18PM By MARIO PATEL MD ; [facility] Citalopram Hydrobromide 40 MG Oral Tablet 06/12/2019 - 04/22/2020 Provider: GIANA PATEL M.D. Diagnosis: Major depressive disorder, single episode, unspecified One tablet at bed time Last Documented On 04/22/2020 4:52PM By MARIO PATEL MD ; [facility] Xulane 150-35 MCG/24HR Transdermal Patch Weekly 06/05/2019 - 07/23/2019 Provider: CELIA COVINGTON RN [facility] Diagnosis: Irregular menstr uation, unspecified as directed 1 patch weekly a s directed no further refills pt. needs appt. Last Documented On 9 9:27AM By CELIA BRAR ; [facility] Wellbutrin SR 100MG Oral Tablet Extended Release 12 Hour 03/15/2019 - 10/16/2019 Provider: GIANA PATEL M.D. Diagnosis: Major depressive disorder, single episode, unspecified One tablet twice a day Last Documented On 10/16/2019 5:18PM By MARIO PATEL MD ; [facility] Adderall XR 30MG Oral Capsule Extended Release 24 Hour 03/15/2019 - 10/16/2019 Provider: GIANA PATEL M.D. Diagnosis: Attn-defct hyper activity disorder, predom inattentive type 1 capsule daily Last Documented On 10/16/2019 5:18PM By MARIO PATEL MD ; [facility] Citalopram Hydrobromide 40MG Oral Tablet 03/15/2019 - 06/12/2019 Provider: GIANA PATEL M.D. Diagnosis: Major depressive disorder, single episode, unspecified One tablet at bed time Last Documented On 06/12/2019 4:51PM By MARIO PATEL MD ; [facility] Xulane 150-35MCG/24HR Transdermal Patch Weekly 02/19/2019 - 06/05/2019 Provider: CELIA COVINGTON RN [facility] Diagnosis: Irregular menstruation, unspecified as directed APPLY ONE PATCH DIRECTED FIRST TUESDAY AFTER MENSES BEGINS REMOVE AFTER 7 DAYS AND REAPPLY PATCH X 3 WEEKS Last Documented On 9 2:50PM By CELIA COVINGTON [facility]- ; [facility] Citalopram Hydrobromide 40MG Oral Tablet 02/09/2019 - 03/15/2019 Provider: GIANA PATEL M.D. Diagnosis: Major depressive disorder, single episode, unspecified One tablet at bed time Last Documented On 03/15/2019 11:37AM By MARIO PATEL MD ; [facility] Zithromax Z-Pop 250MG Oral Tablet 01/19/2019 - 02/09/2019 Provider: GIANA PATEL M.D. Diagnosis: use as directed Last Documented On 02/09/2019 9:35AM By Lety Morelos Britney ; [facility] Adderall XR 20MG Oral Capsul e Extended Release 24 Hour 01/16/2019 - 03/15/2019 Provider: GIANA CHRIS M.D. Diagnosis: 1 capsule daily Last Documented On 03/15/2019 11:34AM By MARIO PATEL MD ; [facility] Adderall XR 10MG Oral Capsule Extended Release 24 Hour 01/02/2019 - 03/15/2019 Provider: GIANA PATEL M.D. Diagnosis: Attn-defct hyper activity disorder, predom inattentive type 1 capsule daily in morning Last Documented On 03/15/2019 11:34AM By MARIO PATEL MD ; [facility] Citalopram Hydrobromide 40MG Oral Tablet 01/02/2019 - 02/09/2019 Provider: GIANA PATEL M.D. Diagnosis: Major depressive disorder, single episode, unspecified One tablet at bed time Last Documented On 02/09/2019 9:35AM By Lety JOHNSON ; [facility] Citalopram Hydrobromide 20MG Oral Tablet 12/19/2018 - 01/16/2019 Provider: GIANA PATEL M.D. Diagnosis: Anxiety disorder , unspecified One tablet at bed time Last Documented On 01/16/2019 9:51AM By Lety JOHNSON ; [facility] [id number] Otic Solution 12/05/2018 - 12/19/2018 Provider: ANDREA MOYA GREENSMAN-C Diagnosis: Otitis media, unspecified, left ear as directed 4 drops in affected ear TID Last Documented On 12/19/2018 2:30PM By Lety JOHNSON ; [facility] Macrobid 100MG Oral Capsule 05/13/2018 - 12/05/2018 Provider: ANNY RODRIGUEZ GREENSMAN-C Diagnosis: Acute cystitis w ith hematuria 1 CAPSULE TWO TIMES A DAY. TAKE WITH FOOD. Last Documented On 12/05/2018 11:08AM By Sisi Vu MA ; [facility] Cephalexin 250MG/5ML Oral Suspension Reconstituted 10/14/2016 - 12/05/2018 Provider: VIJAY NASH GREENSMAN-BC Diagnosis: Streptococcal pharyngitis 10 ml twice daily for ten days Last Documented On 12/05/2018 11:08AM By Sisi Vu MA ; [facility] Medications Administered Includes: Administered Medications in patient's chart Medications Administered Diagnosis Date Pro vider medroxyPROGESTERone Acetate 150 MG/ML IM EMERALD Encounter for surveillance of injectable contraceptive 08/02/2022 CELIA COVINGTON RN [facility] Pt tolerated well Last Documented On 2 10:04AM By Nissa William ; [facility] medroxyPROGESTERone Acetate 150 MG/ML IM EMERALD 07/30/2019 CELIA COVINGTON RN [facility] patient tolerated well ad Last Documented On 9 9:31AM By BAMBI GONSALES CMA ; [facility] medroxyPROGESTERone Acetate 400 MG/ML IM SUSP 07/17/2020 CELIA COVINGTON RN [facility] Last Documented On 0 1:52PM By Nicanor JOHNSON ; [facility] medroxyPROGESTERone Acetate 150 MG/ML IM EMERALD Encounter for surveillance of injectable contraceptive 07/07/2021 CELIA COVINGTON RN [facility] Pt tolerated well. Last Documented On 1 3:27PM By Nissa William ; [facility] medroxyPROGESTERone Acetate 150 MG/ML IM EMERALD Encounter for surveillance of injectable contraceptive 07/05/2023 CELIA COVINGTON RN [facility] Pt tolerated well Last Documented On 3 2:03PM By Nissa William ; [facility] medroxyPROGESTERone Acetate 150 MG/ML IM EMERALD Encounter for surveillance of injectable contraceptive 04/21/2022 CELIA COVINGTON RN [facility] Pt tolerated well Last Documented On 2 10:26AM By Nissa William ; [facility] medroxyPROGESTERone Acetate 150 MG/ML IM EMERALD 04/14/2021 CELIA COVINGTON RN [facility] Pt tolerated well. Last Documented On 1 3:44PM By Arnold JOHNSON ; [facility] medroxyPROGESTERone Acetate 150 MG/ML IM EMERALD Encounter for surveillance of injectable contraceptive 04/08/2023 HITESH BROWN [facility]RISTINE- Pt tolerated well. Last Documented On 3 10:36AM By Serena JOHNSON ; [facility] medroxyPROGESTERone Acetate 150 MG/ML IM SUSP Encounter for surveillance of injectable contraceptive 04/03/2020 CELIA COVINGTON RN [facility] Last Documented On 0 3:21PM By Sisi Vu MA ; [facility] medroxyPROGESTERone Acetate 150 MG/ML IM EMERALD Encounter for surveillance of injectable contraceptive 01/13/2023 CELIA COVINGTON RN [facility] Pt tolerated well Last Documented On 3 3:09PM By Nissa William ; [facility] medroxyPROGESTERone Acetate 150 MG/ML IM EMERALD Encounter for surveillance of injectable contraceptive 01/13/2022 CELIA COVINGTON RN [facility] Pt tolerated well. Last Documented On 2 11:01AM By Nissa William ; [facility] medroxyPROGESTERone Acetate 150 MG/ML IM EMERALD Encounter for surveillance of injectable contraceptive 01/13/2021 CELIA COVINGTON RN [facility] Last Documented On 1 1:23PM By Natasha Townsend MA ; [facility] medroxyPROGESTERone Acetate 150 MG/ML IM SUSP Encounter for surveillance of injectable contraceptive 01/10/2020 CELIA COVINGTON RN [facility] Last Documented On 0 9:39AM By Evelyn Herman MA ; [facility] medroxyPROGESTERone Acetate 150 MG/ML IM EMERALD Encounter for surveillance of injectable contraceptive 10/28/2022 CELIA COVINGTON RN [facility] Pt tolerated well. Last Documented On 3 3:46PM By Nissa William ; [facility] medroxyPROGESTERone Acetate 150 MG/ML IM SUSP 10/22/2019 CELIA COVINGTON RN [facility] patient tolerated well ad Last Documented On 0 2:40PM By BAMBI GONSALES CMA ; [facility] medroxyPROGESTERone Acetate 150 MG/ML IM EMERALD Encounter for surveillance of injectable contraceptive 10/15/2021 CELIA COVINGTON RN [facility] Pt tolerated well. Last Documented On 2 3:47PM By Nissa William ; [facility] medroxyPROGESTERone Acetate 150 MG/ML IM EMERALD 10/15/2020 CELIA COVINGTON RN [facility] Injection to left glut Last Documented On 1 10:21AM By Nicanor JOHNSON ; [facility] medroxyPROGESTERone Acetate 150 MG/ML IM EMERALD Encounter for surveillance of injectable contraceptive 10/05/2023 CELIA COVINGTON RN [facility] Depo administered IM left gl ut. pt tolerated well and aware to return in 12 weeks for next depo......ed Last Documented On 4 10:23AM By MARIA GUADALUPE JOHNSON ; [facility] Results Includes: Results from 10/15/2023 through 10/15/2024 No Results Recorded For Specified Dates History of Present Illness History of Present Illness not supported for this document type No History of Present Illness Recorded Social History Description Last Updated Exercising regularly 10/05/2023 Last Documented On 4 10:18AM ; [facility] Marital history single 10/05/2023 Last Documented On 4 10:18AM ; [facility] Not using alcohol 10/05/2023 Last Documented On 4 10:18AM ; [facility] Not using drugs 10/05/2023 Last Documented On 4 10:18AM ; [facility] Sexually active with 3 partners in the l ast year 10/05/2023 Last Documented On 4 10:18AM ; [facility] Tobacco non-user never cigarettes, just vapes 10/05/2023 Last Documented On 4 10:18AM ; [facility] Tobacco use vaping 09/08/2023 Last Documented On 4 2:44PM ; [facility] Currently in school Student 09/08/2023 Last Documented On 4 2:44PM ; [facility] Current smoker 09/08/2023 Last Documented On 4 2:44PM ; [facility] Smoking electronic cigarettes 09/08/2023 Last Documented On 4 2:44PM ; [facility] Educational level sophomore [employer] 08/03/2023 Last Documented On 3 10:53AM ; [facility] control is being practiced Depo Last Documented On 3 10:53AM ; [facility] Education history 08/03/2023 Last Documented On 3 10:53AM ; [facility] Not a smoker 08/03/2023 Last Documented On 3 10:53AM ; [facility] Sexually active 08/03/2023 Last Documented On 3 10:53AM ; [facility] Single 08/03/2023 Last Documented On 3 10:53AM ; [facility] Working part-time 08/03/2023 Last Documented On 3 10:53AM ; [facility] Smoking Status Unknown Procedures and Surgical History Includes: Procedures from 10/15/2023 through 10/15/2024 Procedures Code Diagnosis Performing Provider Service Location Service Date ELECTROCARDIOGRAM TRACING 18548 Palpitations YOANA BRAVO MD [facility] 11/15/2023 Last Documented On 4 2:44PM ; [facility] ELECTROCARDIAGRAM READING FEE (EKG) 20356 Palpitations YOANA BRAVO MD [facility] 11/15/2023 Last Documented On 4 2:44PM ; [facility] ECG REVIEW INTERP ONLY 13300 Palpitations, Supraventricular tachycardia, unspecified ALICIA BRAVO MD [facility] HRT 11/10/2023 Last Documented On 4 1:49PM ; [facility] Medical History Includes: Medical History in patient's chart Description Last Updated Sexually active 10/05/2023 Last Documented On 4 10:18AM ; [facility] Contraception: depo- last depo was given 07/05/23 10/05/2023 Last Documented On 4 10:18AM ; [facility] Last pap smear date 08/03/2023 4 Last Documented On 4 10:18AM ; [facility] Result: normal cultures, no pap due to a ge 10/05/2023 Last Documented On 4 10:18AM ; [facility] Diastolic blood pressure 80 mmHg 024 Last Documented On 4 3:25PM ; [facility] Systolic blood pressure 130 mmHg 024 Last Documented On 4 3:25PM ; [facility] Medication regimen noncompli ance not taking citlopram and ritalin x 1 month 09/08/2023 Last Documented On 4 2:44PM ; [facility] Primary Care Provider: Dr. Patel 023 Last Documented On 3 10:53AM ; [facility] LMP: NONE d/t DMPA 08/03/2023 Last Documented On 3 10:53AM ; [facility] Not taking medication 04/21/2023 Last Documented On 3 3:03PM ; [facility] 0 02/19/2019 Last Documented On 9 1:55PM ; [facility] Family History Includes: Family History in patient's chart Description Last Updated Maternal history of systemic hypertensio n Mom 10/05/2023 Last Documented On 4 10:18AM ; [facility] maternal grandmother--lung cancer ~mater nal grandfather--lung cancer 02/19/2019 Last Documented On 9 1:55PM ; [facility] Family history of diabetes mellitus Mate rnal Grandfather 02/19/2019 Last Documented On 9 1:55PM ; [facility] Family history of heart disease maternal grandfather 02/19/2019 Last Documented On 9 1:55PM ; [facility] Family history of hypertensi on mother, maternal grandfather, maternal grandmother 02/19/2019 Last Documented On 9 1:55PM ; [facility] Review of Systems Review of Systems [...] Patient Last Documented On 9 2:58PM ; [facility] DTaP (Infanrix) 1 01/30/2008 Complete (Rep orted) Patient Last Documented On 9 2:58PM ; [facility] Hep A, ped/adol -(HAVRIX) -2 dose 1 03/18/2005 Complete (Reported) Patient Last Documented On 9 2:58PM ; [facility] Hep A, ped/adol -(HAVRIX) -2 dose 1 05/10/2006 Complete (Reported) Patient Last Documented On 9 2:58PM ; [facility] Hep B (Engerix-B/Recombivax HB) Ped/Adult 3 dose 1 2003 Complete (Reported) Pa tient Last Documented On 9 2:58PM ; [facility] Hib 1 2003 Complete (Reported) P atient Last Documented On 9 2:58PM ; [facility] Hib 1 2003 Complete (Reported) P atient Last Documented On 9 2:58PM ; [facility] Hib 1 2003 Complete (Reported) P atient Last Documented On 9 2:58PM ; [facility] Hib 1 06/17/2004 Complete (Reported) P atient Last Documented On 9 2:58PM ; [facility] Meningococcal ACYW (Menveo) 1 04/22/2020 Left Deltoid Complete (Administered) [facility] Last Documented On 0 3:57PM ; [facility] MMR 1 03/16/2004 Complete (Reported) P atient Last Documented On 9 2:58PM ; [facility] MMR 1 04/03/2007 Complete (Reported) P atient Last Documented On 9 2:58PM ; [facility] MMR 1 01/30/2008 Complete (Reported) P atient Last Documented On 9 2:58PM ; [facility] PCV (Prevnar) 1 2003 Complete (Repor jackie) Patient Last Documented On 9 2:58PM ; [facility] PCV (Prevnar) 1 2003 Complete (Repor jackie) Patient Last Documented On 9 2:58PM ; [facility] PCV (Prevnar) 1 2003 Complete (Repor jackie) Patient Last Documented On 9 2:58PM ; [facility] PCV (Prevnar) 1 06/17/2004 Complete (Repor jackie) Patient Last Documented On 9 2:58PM ; [facility] PEDIARIX ([id number]) 1 2003 Comp lete (Reported) Patient Last Documented On 9 2:58PM ; [facility] PEDIARIX ([id number]) 1 2003 Comp lete (Reported) Patient Last Documented On 9 2:58PM ; [facility] PEDIARIX ([id number]) 1 2003 Comp lete (Reported) Patient Last Documented On 9 2:58PM ; [facility] Polio ,IPV (IPOL) 1 01/30/2008 Complete (R eported) Patient Last Documented On 9 2:58PM ; [facility] Varicella 1 03/16/2004 Complete (Reported) Patient Last Documented On 9 2:58PM ; [facility] Varicella 1 04/03/2007 Complete (Reported) Patient Last Documented On 9 2:58PM ; [facility] Varicella 1 01/30/2008 Complete (Reported) Patient Last Documented On 9 2:58PM ; [facility] Allergies Includes: Active, inactive, and resolved Allergies No Known Allergies Encounters Includes: Encounters from 10/15/2023 through 10/15/2024 Encounter Provider Location Date Check-In Time Check- Out Time Diagnosis [Patient Encounter] GIANA PATEL M.D. 4 11/15/2023 3:53PM 11/15/2023 11:59PM [facility] NIYAH PARKER [facility] 4 10:06AM 10:49AM Insurance Includes: Active Insurance Policies Plan Name Member ID Group # Subscriber Relationship Effect brenton Dates 1 - [facility] [id number] ANGELICA PARTIDA Child Clinical Notes Includes: Signed Clinical Notes starting from 09/24/2022 No Clinical Notes Recorded
--- OUTSIDE RECORDS SUMMARY | 2024-10-15 17:16 | XMS_ITS | Clinical Summary ---
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 Active Last Documented On 9 1:29PM ; [facility] Anxiety Disorder Nos 01/02/2019 GIANA PATEL M.D. Active Last Documented On 9 10:26AM ; [facility] Depression 01/02/2019 GIANA PATEL M.D. Acti ve Last Documented On 9 10:26AM ; [facility] Plan of Treatment No Plan of [...] 10/24/2023 2:28PM By MARIO PATEL MD ; [facility] Carvedilol 12.5 MG Oral Tablet 09/08/2023 Provider: GIANA PATEL M.D. Diagnosis: Essential (prima ry) hypertension One tablet twice a day Last Documented On 09/08/2023 2:57PM By MARIO PATEL MD ; [facility] Medications Administered Includes: Administered Medications [...] Location Service Date ECG REVIEW INTERP ONLY 41107 Palpitations, Supraventricular tachycardia, unspecified ALICIA BRAVO MD [facility] HRT 11/10/2023 Last Documented On 4 1:49PM ; [facility] Medical History Includes: Medical History [...] Check-In Time Check-Out Time Diagnosis HOLTOR MONITOR [facility] 10/14/2023 10:15AM 9:23AM Insurance Includes: Active Insurance Policies Plan Name Member ID Group # Subscriber Relationship Effect brenton Dates 1 - [facility] [id number] ANGELICA PARTIDA Child Clinical Notes Includes: Clinical Notes from this encounter No Clinical Notes Recorded
--- OUTSIDE RECORDS SUMMARY | 2024-10-15 17:17 | XMS_ITS ---
Care Plan - [facility] Created on: October 15, 2024 KALEB ROSE : 2005 Sex: Female Author Organization [facility] Address [address] [place] [address] Phone Care Team Providers Care Manager Privacy Name Role Phone AMANDA TAYLOR, MARIO Primary Care Provider [phone] AMANDA Helms, GIANA Morales [facility] [phone]
== END 2024-10-15 17:14 | disposition left against medical advice (07) ==
LOC: ANHED 17:13
DX: Z53.21 Procedure and treatment not carried out due to patient leaving prior to being seen by health care provider (principal)
CPT/HCPCS: 99199

== ENCOUNTER 2025-05-31 18:45 | Emergency (ER) | payer OTHER, SELFPAY ==
[2025-05-31 18:54] VITALS: BP 121/77; PULSE 100; RESP 18; TEMP 36.3; O2SAT 100
--- NOTE | 2025-05-31 18:57 | ED.FEMALEGU ---
HPI - Female Genitourinary General Chief complaint: Urogenital-Female Stated complaint: UIT SYMPTOMS Time Seen by Provider: 05/31/25 19:00 Source: patient, RN notes reviewed and old records reviewed Mode of arrival: ambulatory Limitations: no limitations History of Present Illness HPI Narrative: 20-year-old female presents to the [facility] with burning so, urgency and frequency as well as low suprapubic cramping since yesterday. Currently on her menses. States that she has taken azo. Denies fevers. Denies nausea vomiting. No CVA tenderness Related Data Home Medications ?Medication ?Instructions ?Recorded ?Confirmed ?Last Taken ?Type methylphenidate HCl 20 mg 20 mg PO QPM 10/15/24 10/15/24 Unknown History tablet,extended release Allergies Allergy/AdvReac Type Severity Reaction Status Date / Time No Known Allergies Allergy Verified 10/15/24 14:33 Review of Systems Review of Systems: All systems reviewed & are unremarkable except as noted in HPI and below Constitutional: Constitutional: Reports no additional constitutional complaints ENT: Reports system reviewed and no additional complaints, except as documented Genitourinary: Genitourinary: Reports as per HPI, Reports dysuria and Reports urinary urgency Musculoskeletal: Musculoskeletal: Reports no additional musculoskeletal complaints Integumentary/Breasts: Skin/Breast: Reports system reviewed and no additional complaints, except as docu PMFSH Past Medical History Medical History Hypertension ADHD (attention deficit hyperactivity disorder) Social History Social History Smoking status: Current every day smoker Tobacco type: e-cigarettes/vaping Alcohol intake: current Alcohol use details: social Substance use type: does not use Living arrangements: with roommate(s) Occupation/Education: student Gender identity (if verbalized by the patient): Female Comments At the time of my signature, I reviewed and agree with the nursing past medical, surgical, social, and family history. There is no relevant family history pertinent to the patient complaint. Exam Const: General: cooperative, healthy appearing, comfortable, no acute distress, well developed, alert and well nourished Nutritional Appearance: well nourished Orientation/consciousness: patient oriented x3 Limitations: no limitations HENMT: Head: normal to inspection Mouth: Yes Normal oral and palatal mucosa present, Yes lip normal, Yes tongue normal and Yes moist mucous membranes Eyes: General: appearance normal, both eyes and all related structures Alignment and Position: alignment normal Neck: Neck: normal visual inspection, full ROM, no lymphadenopathy and no meningeal signs Chest: Chest palpation & inspection: normal inspection of the chest Resp: Effort & Inspection: normal respiratory effort and able to speak in complete sentences Auscultation: clear to auscultation bilaterally, no crackles, no rales, no rhonchi and no wheezes Cardio: Rate: regular rate GI: GI Palp: No abdominal tenderness : General: Yes no CVA tenderness Skin: General skin exam: normal color and no rashes or lesions noted Neuro: General: patient oriented x3, gait normal, moves all extremities and no meningeal signs Cognition (Neuro): normal cognition Speech: normal speech Gait exam (Neuro): Normal gait present Extrem: General: normal to inspection, full ROM, capillary refill normal and normal gait Psych: Appearance: grossly normal and well kempt Mental Status: mental status grossly normal Speech and movement: Normal speech and movement present and Clear speech present Affect: normal affect Attitude: cooperative Course Course Level of Care: Express Care Visit Vital Signs Vital signs: Vital Signs Temperature 97.4 F L 05/31/25 18:54 Pulse Rate 100 05/31/25 18:54 Respiratory Rate 18 05/31/25 18:54 Blood Pressure 121/77 05/31/25 18:54 Pulse Oximetry 100 05/31/25 18:54 Temperature 97.4 F L 05/31/25 18:54 Pulse Rate 100 05/31/25 18:54 Respiratory Rate 18 05/31/25 18:54 Blood Pressure 121/77 05/31/25 18:54 Pulse Oximetry 100 05/31/25 18:54 Reviewed MDM - Female Genitourinary MDM Narrative Medical decision making narrative: Patient with 1 day history frequency urgency burning with urination. Positive leukocytes. Culture sent Patient sitting in exam room. Nontoxic, vitals are stable. Patient presents with UTI symptoms. Patient appropriate for outpatient treatment with treatment of a UTI with Augmentin Discharge instructions reviewed with patient, as well as provided in writing per nursing staff. The instructions also include specific and strict return/GO TO THE ER as well as f/u information. All questions have been answered, and the patient deny any further questions with discharge and discharge plan. Some parts of this dictation were generated by voice recognition software and may contain typographical and/or grammatical inaccuracies. Differential Diagnosis Differential diagnosis: Likely urinary tract infection and cystitis Lab Data Labs: Lab Results 05/31/25 Range/Units 19:07 POC Urine Color Yellow POC Urine Clarity Cloudy POC Urine pH 6.5 POC Ur Specif [place] 1.030 POC Urine Protein 3+ (Negative) POC Ur Glucose (UA) Negative (Negative) POC Urine Ketones Negative (Negative) POC Urine Blood 2+ (Negative) POC Urine Nitrite Negative (Negative) POC Urine Bilirubin Negative (Negative) POC Urine Urobilinogen 1.0 POC U Leukocyte Esteras 1+ (Negative) Reviewed Critical Care Time Critical Care Time Critical Care Time: No Discharge Plan Discharge Clinical Impression: Urinary tract infection Patient Disposition: Home Condition: Stable Instructions: Antibiotic Form, Urinary Tract Infection in Women (ED) Additional Instructions: Increased water intake Take Tylenol as needed for pain Take antibiotic as prescribed Today your urine dip showed a probability of a UTI. You have been prescribed an antibiotic. Your urine will be sent to our lab for a culture. If at that time a bacteria grows that is not covered by the antibiotic prescribed you will be notified. Follow-up with primary care For new or worsening symptoms go directly to the emergency room Patient Language: Swedish Prescriptions: New amoxicillin-pot clavulanate 875-125 mg tablet 1 tablet PO Q12H Qty: 10 0RF No Action methylphenidate HCl 20 mg tablet extended release 20 mg PO QPM Follow-up/Referrals: Conrad,Gerard [Other] Time of Disposition: 19:02
[2025-05-31 19:09] LABS: EDUAAPPEAR Cloudy; EDUABILI Negative (Negative); EDUABLOOD 2+ (Negative); EDUACOLOR1 Yellow; EDUAGLUCOSE Negative (Negative); EDUAKETONE Negative (Negative); EDUALEUKO 1+ (Negative); EDUANITRATE Negative (Negative); EDUAPH 6.5; EDUAPROTEIN 3+ (Negative); EDUASPGRAVITY 1.030; EDUAUROBILI 1.0
== END 2025-05-31 19:05 | disposition home or self-care (01) ==
PROVIDERS: Emergency Provider Nurse Practitioner
DX: N39.0 Urinary tract infection, site not specified (principal); I10 Essential (primary) hypertension; F17.290 Nicotine dependence, other tobacco product, uncomplicated
CPT/HCPCS: 81003; 87086; 99213; G0463